=== PATIENT | female | born 1995 | race Two or more races ===

== ENCOUNTER 2024-12-08 09:47 | Emergency (ER) | payer MEDICAID, SELFPAY ==
[2024-12-08 10:07] VITALS: BP 112/66; PULSE 62; RESP 16; TEMP 37.1; O2SAT 99; BMI 22.3
--- NOTE | 2024-12-08 10:14 | XR_ITS ---
Examination: Complete OB ultrasound, less than 14 weeks, transabdominal Date and time of exam: December 08, 2024 1141 hours INDICATIONS: Vaginal bleeding and pelvic pain beginning one week ago Technique: Obstetrical ultrasound images less than 14 weeks performed via transabdominal imaging Findings: A normal shaped single intrauterine gestation is present in the uterus. pole 1.0 cm corresponds to 7 week 0 day gestational age Cardiac motion 126 BPM Adjacent subchorionic hemorrhage 17 x 8 x 14 mm Ultrasonographic survey of visible structures unremarkable. Amniotic fluid volume appears appropriate for this estimated gestational age. Right ovary 3.2 cm arterial flow 22 mm cyst Left ovary 2.9 cm arterial flow 13 mm cyst IMPRESSION: Viable intrauterine gestation 7 weeks 0 days Given the subchorionic hemorrhage, recommend short-term follow-up pelvic sonography.
--- NOTE | 2024-12-08 10:14 | EDNOTE_ITS ---
ED OB Contraction Preg RMI/HPI General Chief complaint: Vaginal Bleeding Stated complaint: I THINK IM HAVING A MISCARRIAGE . 8 WKS PREG Time Seen by Provider: 12/08/24 10:13 Arrival date/time: 12/08/24 09:47 29-year-old female approximately 8 weeks presents to the emergency department today complaints of vaginal bleeding patient is G3, patient reports being recently treated for UTI Limitations: no limitations Related Data Previous Rx's ?Medication ?Instructions ?Recorded amoxicillin 500 mg tablet 500 mg PO TID ##30 05/13/12 Allergies Allergy/AdvReac Type Severity Reaction Status Date / Time lactose Allergy Severe Diarrhea Verified 12/08/24 09:48 Review of Systems Review of Systems Systems Reviewed: All systems reviewed, normal except as documented Constitutional Constitutional: Reports system reviewed and no additional complaints, except as documented, Denies fever(s) and Denies headache(s) Eyes Eyes: Reports system reviewed and no additional complaints, except as documented and Denies blurry vision ENT Ears, Nose, Mouth, and Throat: Reports system reviewed and no additional complaints, except as documented, Denies headache(s), Denies nasal congestion and Denies nasal discharge Cardiovascular Cardiovascular: Reports system reviewed and no additional complaints, except as documented, Denies chest pain and Denies dyspnea Respiratory Respiratory: Reports system reviewed and no additional complaints, except as documented, Denies chest congestion, Denies cough and Denies dyspnea Gastrointestinal Gastrointestinal: Reports system reviewed and no additional complaints, except as documented and Denies abdominal pain Genitourinary Genitourinary: Reports system reviewed and no additional complaints, except as documented, Reports abnormal vaginal bleeding and Reports pelvic pain Integumentary/Breasts Skin/Breast: Reports system reviewed and no additional complaints, except as do cumented and Denies rash Neurologic Neurologic: Reports system reviewed and no additional complaints, except as documented, Reports as per HPI and Denies headache(s) Past Medical History Social History SMOKING STATUS: Never smoker ED Exam General Limitations: Present no limitations General appearance: Present alert and in no apparent distress Head Head exam: Present atraumatic, normocephalic and normal inspection Eye Eye exam: Present normal appearance, PERRL and EOMI; Absent conjunctival injection ENT ENT exam: Present normal exam, normal oropharynx and mucous membranes moist Neck Neck exam: Present normal inspection, full ROM and trachea midline Chest Chest inspection: Present normal inspection and symmetric chest wall rise Respiratory Respiratory exam: Present normal lung sounds bilaterally; Absent respiratory distress Cardiovascular Cardiovascular exam: Present regular rate, normal rhythm and normal heart sounds Abdominal Exam Abdominal exam: Present soft and normal bowel sounds; Absent distention, tenderness, guarding, rebound or rigidity Extremities Exam Extremities exam: Present normal inspection and full ROM Back Exam Back exam: Present normal inspection and full ROM Neurological Exam Neurological exam: Present alert, oriented X3 and CN II-XII intact Psychiatric Psychiatric exam: Present normal affect and normal mood Skin Skin exam: Present warm, dry, intact and normal color Course Quality Measures none Orders Category Date Time Status US OB <= 14 weeks fetus Stat Exams 12/08/24 10:14 Completed ABO/RH Type Stat Lab 12/08/24 11:21 Completed Beta HCG,Quantitative Stat Lab 12/08/24 11:21 Completed CBC Stat Lab 12/08/24 11:21 Completed Comprehensive Metabolic Panel Stat Lab 12/08/24 11:21 Completed UA, C/S IF [Urinalysis, C/S if Indicated] Stat Lab 12/08/24 13:35 Completed Vital Signs Vital signs: Vital Signs Temperature 98.7 F 12/08/24 10:07 Pulse Rate 62 12/08/24 10:07 Respiratory Rate 16 12/08/24 10:07 Blood Pressure 112/66 12/08/24 10:07 Pulse Oximetry (%) 99 12/08/24 10:07 Oxygen Delivery Method Room Air 12/08/24 10:07 O2 saturation 99% room air within normal limits Vaginal Bleeding MDM Narrative MDM Narrative: 29-year-old female approximately 8 weeks presents to the emergency department today complaints of vaginal bleeding patient is G3, patient reports being recently treated for UTI On exam patient well-appearing patient does not appear ill or toxic patient reports no active bleeding Lab work and ultrasound obtained Lab are consistent with viable Patient discharged home in no distress to follow-up with DRESSMAKER HELPER in the next 24 to 48 hours and for any worsening symptoms to return to the ER immediately Patient data External records reviewed:: [facility] previous records Clinical information provided by:: patient Social determinants that could affect healthcare access:: none Patient has the following chronic illnesses:: None How is presenting disease/condition affected by chronic disease/condition?: no chronic disease Evaluation data The following diagnostics were reviewed and interpreted by me:: lab results and radiology exam(s) Lab and/or radiology exams considered but not ordered:: Labs radiology obtain Interpretation Summary: Reviewed by me Medications / Prescriptions Medications or Prescriptions considered but not ordered:: Given Medication administrations:: Given Consultations Consultation(s) initiated? (list below): No Diagnosis Vaginal Bleeding Differential Diagnosis: missed and threatened Most likely diagnosis given after review of the tests above:: Threatened Admission Indicated Admission indicated?: not indicated Admission Request Was there a request for admission?: No Disposition Plan Disposition Plan: Discharge Discharge Attestation Discharge Attestation: The patient and all family members were given an opportunity to ask questions and understood the discharge instructions. Discharge instructions specifically effects, indications for sooner follow up or return to the emergency department, and the expected course of current diagnosis. Patient condition: Stable Discharge Plan Plan Patient Disposition: HOME (Self Care) Disposition Comment: Stable Prescriptions/Referrals Prescriptions/Med Rec: No Action amoxicillin 500 MG tablet 500 mg PO TID Qty: 30 0RF Referrals: Carter Leiva MD [Primary Care Provider] - 12/09/24 Problem List Clinical Impression: Subchorionic bleed Patient/Caregiver Discharge Instructions Education Materials: Bleeding During Early Additional Instructions: Please follow up with your DRESSMAKER HELPER in the next 24-48hrs for any worsening symptoms return here immediately Print Language: Portuguese Stand Alone Forms: Maite Award Info., Work/School Release, Patient Portal Info Letter ANDREW/DOROTHY Supervising Physician ANDREW/DOROTHY Supervising Physician: Dr benitez
[2024-12-08 11:38] LABS: Basophils % (Auto) 0 % (0-2.5); Eosinophils % (Auto) 0 % (0-10); Hematocrit 34.9 % (36.0-46.0); Hemoglobin 11.8 g/dL (12.0-16.0); Immature Granulocytes % (Auto) 0 % (0-0); Immature Granulocytes Auto 0.01 Thou/mm3 (0.00-0.00); Lymphocytes # (Auto) 1.3 Thou/mm3 (1.0-4.8); Lymphocytes % (Auto) 21 % (10-50); Mean Corpuscular HGB Conc 33.8 g/dl (31.0-37.0); Mean Corpuscular Hemoglobin 29.3 pg (25.0-35.0); Mean Corpuscular Volume 87 fL (80-100); Monocytes # (Auto) 0.5 Thou/mm3 (0.0-0.8); Monocytes % (Auto) 8 % (0-12); Neutrophils # (Auto) 4.5 Thou/mm3 (1.8-7.7); Neutrophils % (Auto) 71 % (37-80); Nucleated Red Blood Cell % 0 /100 WBC (0); Platelet Count 240 Thou/mm3 (140-440); RDW Standard Deviation 43.5 fL (36.4-46.3); Red Blood Count 4.03 Miln/mm3 (4.00-5.20); White Blood Count 6.3 Thou/mm3 (3.6-11.0)
[2024-12-08 12:18] LABS: Alanine Aminotransferase 10 U/L (10-49); Albumin, Serum 4.6 gm/dL (3.5-5.0); Albumin/Globulin Ratio 1.8 (1.2-2.2); Alkaline Phosphatase 46 U/L (46-116); Anion Gap 5 (7-16); Aspartate Amino Transferase 11 U/L (0-34); BUN/Creatinine Ratio 17 Ratio (12-20); Bilirubin,Total 0.4 mg/dL (0.3-1.2); Blood Urea Nitrogen 10 mg/dL (9-23); Calcium 9.3 mg/dL (8.3-10.6); Calcium (Corrected) 9.3 mg/dL (8.5-10.1); Carbon Dioxide 26.1 mMol/L (20.0-31.0); Chloride 104 mMol/L (98-107); Creatinine (Component) 0.6 mg/dL (0.6-1.3); Estimated Creatinine Clearance 120.5 mL/min (>60); Globulin 2.6 gm/dL (2.3-3.5); Glucose 87 mg/dL (74-106); Osmolality,Calculated 268 (275-295); Sodium 135 mMol/L (136-145); Total Protein 7.2 gm/dL (5.7-8.2); eGFR > 60 See Note
[2024-12-08 13:47] LABS: Beta HCG,Quantitative 215332 mIU/mL (<5.0)
[2024-12-08 13:56] LABS: Collection Type, Urine Clean Catch
[2024-12-08 14:32] LABS: Bacteria,Urine Rare; Bilirubin,Urine Negative (Negative); Blood,Urine 1+ (Negative); Clarity,Urine Turbid (Clear/Hazy); Color,Urine Lt-Yellow (Lt Yel-Yel); Culture Indicated,Urine Not Indicated; Glucose, Urine Negative (Negative); Ketones,Urine Negative (Negative); Leukocyte Esterase,Urine Negative (Negative); Nitrite,Urine Negative (Negative); PH,Urine 6.5 (5.0-7.0); Protein,Urine Negative (Neg - Trace); RBC,Urine 15 /hpf (0-3); Squamous Epithelial Cell,Urine 20 /hpf (0-5); Urobilinogen,Urine Negative mg/dL (0.0-1.0); WBC,Urine 1 /hpf (0-5)
== END 2024-12-08 14:45 | disposition home or self-care (01) ==
PROVIDERS: Nurse Practitioner Primary Care; Emergency Provider Emergency Medicine; PCP Family Medicine
DX: O20.8 Other hemorrhage in early pregnancy (principal); Z3A.08 8 weeks gestation of pregnancy
CPT/HCPCS: 36415; 76801; 80053; 81001; 84702; 85025; 86900; 86901; 99284

== ENCOUNTER 2024-12-14 10:41 | Outpatient (AMB) | payer MEDICAID, SELFPAY ==
[2024-12-14 10:54] VITALS: BP 111/68; PULSE 69; RESP 12; TEMP 36.5; O2SAT 98; BMI 22.4
--- NOTE | 2024-12-14 10:54 | AMB.OBINITIA ---
Vital Signs 12/14/24 10:54 Height 1.63 m Height Method Stated Weight 59.421 kg Weight Measurement Method Standing Scale BMI 22.4 BP 111/68 Blood Pressure Source Automatic Cuff Blood Pressure Location Left Upper Arm Position Sitting Respiration 12 Pulse 69 Pulse Source Monitor Temp 97.7 F Temp Source Oral Pulse Oximetry (%) 98 Oxygen Delivery Method Room Air Allergies/Home Meds Allergies & Medications Allergies lactose Allergy (Severe, Verified 12/14/24 10:55) Diarrhea Medication Reconciliation doxylamine 10 mg-pyridoxine (vit B6) 10 mg tablet,delayed release (Diclegis) 1 tab PO QDAY 30 days #30 tabs 12/14/24 [Rx] vitamin with calcium no.72-iron 27 mg-folic acid 1 mg tablet ( Vitamins Plus Low Iron) 1 tab PO QDAY 90 days #90 tabs 12/14/24 [Rx] Intake Visit Data Collection New Patient or Established: Established Patient (seen at [facility] within 3 years) Reason for Visit:: First visit for . Seen by Clinical Staff ONLY (RN/MA): No Shipping Support Clerk Required: No Do You Feel Safe at Home: Yes Authorities Contacted: N/A PCP or OBGYN visit in last 3 months: No Hx Now: Yes Are you currently on any form of Control: No Last menstrual period: 10/15/24 Pain Present Currently: No Pain Scale Used: Ochoa-Sosa/Numerical Pain scale:: 0 Smoking Status Smoking Status: Never smoker Questionnaires Covid-19 Vaccine Questionnaire Has patient been vacinated for Covid-19 Have you been vacinated for Covid-19: No PHQ-9 PHQ-2 Over the last 2 weeks, how often have you been bothered by any of the following problems? 1. Little interest or pleasure in doing things: not at all 2. Feeling down, depressed, or hopeless: not at all Total score: 0 PHQ-9 3. Trouble falling or staying asleep, or sleeping too much: Not at all 4. Feeling tired or having little energy: Not at all 5. Poor appetite or overeating: Not at all 6. Feeling bad about yourself - or that you are a failure or have let yourself or your family down: Not at all 7. Trouble concentrating on things, such as reading the newspaper or watching television: Not at all 8. Moving or speaking so slowly that other people could have noticed? - Or the opposite - being so fidgety or restless that you have been moving around a lot more than usual: not at all 9. Thoughts that you would be better off or of hurting yourself in some way: Not at all Total score: 0 Source: Developed by Drs. Butch Rico, Catie Acevedo, Giancarlo Farrar and colleagues, with an educational mishel from [employer]. Depression screen completed yes Social History Living Situation History Marital Status: Lives With: Family Housing: House Tobacco History Smoking Status: Never smoker Second Hand Smoke Exposure: No Alcohol History Alcohol Intake: Never Substance Use History Substance Use: NONE Domestic Abuse History Do You Feel Safe at Home: Yes Past Medical History Past Medical History Have you ever been diagnosed with any of the following: Neurological Problems Cerebrovascular Accident (CVA): No Transient Ischemic Attacks (TIA): No Dementia: No Alzheimer's Disease: No Seizures: No Epilepsy: No Guillain-[place] Syndrome: No Spinal Cord Injury: No Traumatic Brain Injury: No Cardiology Problems Myocardial Infarction: No Cardiac Arrhythmia: No Atrial Fibrillation: No Angina: No Hypertension: No Respiratory Problems Chronic Obstructive Pulmonary Disease (COPD): No Asthma: No Bronchitis: No Emphysema: No Hx Cough: No Cough: No Wheezing: No Chest Deformities: No Smoking: No Smoking Cessation Counseling: No Smoking Exposure: No Tobacco Use: No Stomache/Intestinal Problems Liver Cancer: No Hepatitis: No Cirrhosis: No Gall Bladder Disease: No Genital/Urinary Problems Chronic Kidney Disease: No Renal Disease: No Kidney Stones: No Reproductive Problems Breast Cancer: No Genital Herpes: No Gonorrhea: No Previous Pregnancies: Yes Syphilis: No Musculoskeletal Problems Muscular Dystrophy: No Myasthenia Gravis: No Marfan's Syndrome: No Bone Cancer: No Gout: No Head,Eye,Nose,Throat Problems Cataracts: No Glaucoma: No Blind: No Retinal Detachment: No Macular Degeneration: No Chronic Ear Infections: No Deafness: No Eye Prosthesis: No Endocrine Problems Diabetes Mellitus Type 1: No Diabetes Mellitus Type 2: No Hypoglycemia: No [place]'s Syndrome: No [place]'s Disease: No Hypothyroidism: No Thyroid Cancer: No Blood Problems Anemia: No Leukemia: No Hemophilia: No Thalassemia: No Sickle Cell Disease: No Clotting Problems: No Psychologic Problems Schizophrenia: No Recreational Drug Use: No Bipolar Disorder: No Depression: No Anxiety: No Behavior Problems: No Self-Mutilation: No Attention Deficit Disorder: No Attention Deficit Hyperactivity Disorder: No Depression: No Post Traumatic Stress Disorder: No Eating Disorder: No Other Problems Hospitalization: Yes Autoimmune Disease: No Down Syndrome: No Autism: No Developmental Delay: No Cosmetic Surgery: No Shingles: No Falls: No Surgical History Angioplasty: No Appendectomy: No Bariatric Surgery: No Breast Surgery: No History of Present Illness HPI Narrative History of Present Illness at 8 weeks 1 day gestation presenting for initial visit. Patient reports nausea during this , with one episode of emesis. She recently visited the ER where an ultrasound revealed a small area of hemorrhage, but otherwise normal findings with a viable fetus measuring 7 weeks at that time. The patient was also diagnosed with a UTI during the ER visit and completed a course of Keflex. She denies any current cramping, spotting, or abdominal pain. Patient's obstetrical history is significant for a full-term vaginal delivery 7 years ago, complicated by hemorrhage. She also reports a miscarriage in March of the previous year. No history of gestational diabetes in prior pregnancies. Medical History - (current is 3rd gestation, 1 living child, 0 births, 1 miscarriage, 1 term ) - Miscarriage (March of previous year) - hemorrhage (with first ) - Recent UTI (treated with Keflex) Surgical History - Normal vaginal delivery (7 years ago) Medications and Supplements - vitamins - Keflex (for UTI treatment, completed course) Social History - Family structure: Patient has one 7-year-old child Review of Systems - Gastrointestinal: Nausea, vomited once - Genitourinary: Had a UTI (urinary tract infection) OB Initial Visit Menstrual History Menstrual reliability: definite Flow: normal Menstrual regularity: regular Monthly: Yes Age at menarche: 17 On control pills at conception: No Date of positive home test: 11/29/24 Associated symptoms (LMP): Denies amenorrhea, nausea, vomiting, fatigue, breast tenderness, urinary frequency, irritability, bloating or other OB History : 3 Para: 1 Hx # Pregnancies: 0 Hx Total # of Abortions (Spontaneous & Elective): 1 # of Living Children: 1 Delivery History 1st : Child's name: JHONNY date: 03/22/17 sex: male Gestational age at delivery (weeks): 40 Delivery type: vaginal Delivery complications: NONE History of depression before or after : No Infection History & Risk Evaluation History of STDs: none Varicella/chicken pox status: immunized Genetic Screening & History Genetic Screening/Teratology Counseling - Includes patient, baby's father, or anyone in either family with: 1. Patient's age 35 years or older as of estimated date of delivery: No 2. Thalassemia (Martiniquais, Chinese, Mediterranean, or Background); MCV less than 80: No 3. Neural Tube Defect (Meningomyelocele, Spina Bifida, or Anencephaly): No 4. Congenital Heart Defect: No 5. Down Syndrome: No 6. Robin-Sachs (Ashkenazi Caodaism, Cajun, Cameroonian Serbian): No 7. Fabiola Disease (Ashkenazi Caodaism): No 8. Familial Dysautonomia (Ashkenazi Caodaism): No 9. Sickle Cell Disease or Trait (): No 10. Hemophilia or other blood disorders: No 11. Muscular Dystrophy: No 12. Cystic Fibrosis: No 13. [place]'s Chorea: No 14. Mental Retardation/Autism: No 15. Other inherited genetic or chromosomal disorder: No 16. Maternal Metabolic Disorder (EG,TYPE 1 Diabetes, PKU): No 17. Patient or baby's father had a child with defects not listed above: No 18. Recurrent loss or a stillbirth: No 19. Medications (including supplements, vitamins, herbs or otc drugs)/illicit/recreational drugs/alcohol since last menstrual period: No 20. Any other: No Infection History 1. Live with someone with TB or exposed to TB: No 2. Rash or viral illness since last menstrual period: No 3. Hepatitis B,C: No Other (see comments) Source: [employer] OB Flowsheet OB Flowsheet Initial Weight: Not Recorded Date <del>?</del> EGA Weight Edema CTX Effacement BP Fundal ht Pres Dilation Effacement Station Visit Note Alb Glu FHR Mov 12/14/24 <del>?</del> 7w 6d 59.421 kg 111/68 Review of Systems Review of Systems Systems Reviewed: All systems reviewed, normal except as documented Constitutional Constitutional: Denies fatigue Gastrointestinal Gastrointestinal: Denies bloating, Denies nausea and Denies vomiting Genitourinary Genitourinary: Denies amenorrhea and Denies urinary frequency Psychiatric Psychiatric: Denies irritability Endocrine Endocrine: Denies fatigue Exam General Limitations: no limitations General Appearance: alert, in no apparent distress, comfortable, cooperative, healthy appearing, well developed and well groomed Head Head exam: atraumatic, normocephalic and normal inspection Neck Neck exam: Present normal inspection, full ROM and trachea midline Card Cardiovascular exam: Present regular rate, normal rhythm and normal heart sounds Abdominal Abdominal exam: Present soft and normal bowel sounds Extremities Extremities exam: Present normal inspection and full ROM Back Back exam: Present normal inspection and full ROM Psych Psychiatric exam: Present normal affect and normal mood Skin Skin exam: Present warm, dry, intact and normal color Assessment & Plan Diagnosis / Problem List (1) Supervision of high risk , unspecified, first trimester: Status: Acute Plan: Intrauterine at 8 weeks 1 day gestation Patient is a at 8 weeks 1 day gestation based on ultrasound findings. LIS is July 27, 2025. Recent ER visit showed a small area of hemorrhage, but heartbeat was present. Current ultrasound demonstrates normal heart rate of 160 bpm. Patient reports nausea with one episode of emesis. No current cramping, spotting, or abdominal pain. History of hemorrhage with previous delivery. - Continue vitamins - Complete initial labs and genetic screening after 9 weeks gestation at [facility] - Detailed ultrasound scheduled for 12 weeks gestation - Monitor for worsening nausea and vomiting - Follow up as scheduled (2) Subchorionic bleed: Status: Inactive (3) UTI in , antepartum: Status: Acute Plan: Patient reports recent UTI diagnosed during ER visit. Treated with Keflex (cephalexin), which is considered safe in . Patient states she completed the prescribed course. - Monitor for recurrence of UTI symptoms - No further intervention required at this time (4) Ovarian cyst affecting in first trimester, antepartum: Status: Acute Plan: Ovarian cyst Patient reports history of ovarian cyst discovered during recent ER visit. Exact size unknown but was not of immediate concern. Cysts typically remain stable during . - Monitor cyst during 12-week detailed ultrasound - Assess for any pressure on fetus or uterine distortion Office Procedures OB Clinic LOC & Office Proc's Nursing/Assessment Patient Status: Established Patient OB Clinic Nursing Assessment: Medication Reconciliation, Update PMH in EMR and Vital Signs OB Clinic Coordination of Care: Complex Care and Chronic Disease 1-5, Consent,records obtained, informed consent, Education Simp Pt/Fam, Lab and Imaging orders and Staff clarify orders Special Needs: Heart tones Established Patient Charge Established Patient Point Assignment: 130 Established Patient Point Charge: EP Level 4 (120-155) Bedside Ultrasounds US Transabdominal >14 weeks at bedside: Yes
== END 2024-12-14 11:11 | disposition home or self-care (01) ==
LOC: HODSOBC 10:41
PROVIDERS: Supervising Provider Obstetrics & Gynecology; Visit Provider Obstetrics & Gynecology
DX: O09.891 Supervision of other high risk pregnancies, first trimester (principal); O20.8 Other hemorrhage in early pregnancy; O23.41 Unspecified infection of urinary tract in pregnancy, first trimester; O34.81 Maternal care for other abnormalities of pelvic organs, first trimester; N83.209 Unspecified ovarian cyst, unspecified side; Z3A.01 Less than 8 weeks gestation of pregnancy; Z87.59 Personal history of other complications of pregnancy, childbirth and the puerperium
CPT/HCPCS: 76805; 99214; G0463

== ENCOUNTER 2025-01-16 09:48 | Outpatient (AMB) | payer MEDICAID, SELFPAY ==
[2025-01-16 10:15] VITALS: BP 108/72; PULSE 90; RESP 18; TEMP 36.4; O2SAT 95; BMI 22.0
--- NOTE | 2025-01-16 10:15 | AMB.OBINITIA ---
Vital Signs 01/16/25 10:15 Height 1.63 m Height Method Stated Weight 58.173 kg Weight Measurement Method Standing Scale BMI 22.0 BP 108/72 Blood Pressure Source Automatic Cuff Blood Pressure Location Left Upper Arm Position Sitting Respiration 18 Pulse 90 Pulse Source Monitor Temp 97.5 F Temp Source Oral Pulse Oximetry (%) 95 Oxygen Delivery Method Room Air Allergies/Home Meds Allergies & Medications Allergies lactose Allergy (Severe, Verified 01/16/25 10:16) Diarrhea Medication Reconciliation doxylamine 10 mg-pyridoxine (vit B6) 10 mg tablet,delayed release (Diclegis) 1 tab PO QDAY 30 days #30 tabs 12/14/24 [Rx Confirmed 01/16/25] vitamin with calcium no.72-iron 27 mg-folic acid 1 mg tablet ( Vitamins Plus Low Iron) 1 tab PO QDAY 90 days #90 tabs 12/14/24 [Rx] amoxicillin 500 mg capsule 500 mg PO TID 5 days #15 caps 01/16/25 [Rx] Intake Visit Data Collection New Patient or Established: Established Patient (seen at [facility] within 3 years) Reason for Visit:: CARE/ LAB RESULTS 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 1. Little interest or pleasure in doing things: not at all 2. Feeling down, depressed, or hopeless: not at all Total score: 0 PHQ-9 3. Trouble falling or staying asleep, or sleeping too much: Not at all 4. Feeling tired or having little energy: Not at all 5. Poor appetite or overeating: Not at all 6. Feeling bad about yourself - or that you are a failure or have let yourself or your family down: Not at all 7. Trouble concentrating on things, such as reading the newspaper or watching television: Not at all 8. Moving or speaking so slowly that other people could have noticed? - Or the opposite - being so fidgety or restless that you have been moving around a lot more than usual: not at all 9. Thoughts that you would be better off or of hurting yourself in some way: Not at all Total score: 0 Source: Developed by Drs. Butch Rico, Catie Acevedo, Giancarlo Farrar and colleagues, with an educational mishel from [employer]. Depression screen completed yes Social History Living Situation History Lives With: Family Housing: House Tobacco History Smoking Status: Never smoker Second Hand Smoke Exposure: No Alcohol History Alcohol Intake: Never Substance Use History Substance Use: NONE Domestic Abuse History Do You Feel Safe at Home: Yes Past Medical History Past Medical History Have you ever been diagnosed with any of the following: Neurological Problems Cerebrovascular Accident (CVA): No Transient Ischemic Attacks (TIA): No Dementia: No Alzheimer's Disease: No Seizures: No Epilepsy: No Guillain-[place] Syndrome: No Spinal Cord Injury: No Traumatic Brain Injury: No Cardiology Problems Myocardial Infarction: No Cardiac Arrhythmia: No Atrial Fibrillation: No Angina: No Hypertension: No Respiratory Problems Chronic Obstructive Pulmonary Disease (COPD): No Asthma: No Bronchitis: No Emphysema: No Hx Cough: No Cough: No Wheezing: No Chest Deformities: No Smoking: No Smoking Cessation Counseling: No Smoking Exposure: No Tobacco Use: No Stomache/Intestinal Problems Liver Cancer: No Hepatitis: No Cirrhosis: No Gall Bladder Disease: No Genital/Urinary Problems Renal Disease: No Kidney Stones: No Reproductive Problems Breast Cancer: No Genital Herpes: No Gonorrhea: No Previous Pregnancies: Yes Syphilis: No Musculoskeletal Problems Muscular Dystrophy: No Myasthenia Gravis: No Marfan's Syndrome: No Bone Cancer: No Gout: No Head,Eye,Nose,Throat Problems Cataracts: No Glaucoma: No Blind: No Retinal Detachment: No Macular Degeneration: No Chronic Ear Infections: No Deafness: No Eye Prosthesis: No Endocrine Problems Diabetes Mellitus Type 1: No Diabetes Mellitus Type 2: No Hypoglycemia: No [place]'s Syndrome: No Cowden's Disease: No Hypothyroidism: No Thyroid Cancer: No Blood Problems Anemia: No Leukemia: No Hemophilia: No Thalassemia: No Sickle Cell Disease: No Clotting Problems: No Psychologic Problems Schizophrenia: No Recreational Drug Use: No Bipolar Disorder: No Depression: No Anxiety: No Behavior Problems: No Self-Mutilation: No Attention Deficit Disorder: No Attention Deficit Hyperactivity Disorder: No Depression: No Post Traumatic Stress Disorder: No Eating Disorder: No Other Problems Hospitalization: Yes Down Syndrome: No Autism: No Developmental Delay: No Cosmetic Surgery: No Shingles: No Falls: No Surgical History Angioplasty: No Appendectomy: No Bariatric Surgery: No Breast Surgery: No History of Present Illness HPI Narrative Patient reports feeling generally good with occasional nausea and vomiting. She denies experiencing cramping or spotting. Nga mentions frequent urination, stating, every time I, like, even if I drink a little bit of water, I pee, like, right away. This symptom suggests bladder irritation. She was previously prescribed cephalexin 500 mg twice daily for a week to treat a urinary tract infection, but lab results indicate the infection persists. The patient reports no other significant symptoms or concerns. She is currently taking vitamins as prescribed. She is a 3 para 1011 at 12 weeks and 4 days gestation with an estimated delivery date of 07-27-2025. The gender is male. She has a history of recurrent urinary tract infections. The patient is immune to rubella. Patient mentions going to the gym and running as potential activities. Reports occasional nausea and vomiting, and frequent urination. Denies fever, chills, fatigue, and cramping. heart rate 151 bpm, noted as normal. Diagnostic Test Results and Labs: - Panel (01/02/2025): Blood group A-positive, antibody screen negative, rubella immune, RPR non-reactive, hepatitis B and C negative, HIV negative - Gonorrhea and Chlamydia (01/02/2025): Negative - Urine culture (01/02/2025): Positive for Coagulase-negative staphylococcus >100,000 CFUs, susceptible to all antibiotics tested - NIPT (01/02/2025): Negative for all trisomies, consistent with male gender - heart rate (01/16/2025): 151 bpm OB Initial Visit OB Flowsheet OB Flowsheet Initial Weight: Not Recorded Date <del>?</del> EGA Weight Edema CTX Effacement BP Fundal ht Pres Dilation Effacement Station Visit Note Alb Glu FHR Mov 12/14/24 <del>?</del> 7w 6d 59.421 kg 111/68 01/16/25 <del>?</del> 12w 4d 58.173 kg 108/72 RX for UTI. Bedside ok. Labs reviewed. [facility] this Thursday for NT. 4w. 151 Assessment & Plan Diagnosis / Problem List (1) UTI in , antepartum: Status: Acute Plan Urinary Tract Infection (UTI) Plan: - Prescribe new antibiotic based on sensitivity report. - Educate patient on increased risks associated with UTIs in . - Follow up on symptoms at next visit. Routine Care Plan: - Continue vitamins. - Attend scheduled Level 2 ultrasound with [facility] specialist on Thursday. - No activity restrictions; advise to stop activity and rest if cramping or bleeding occurs. - Follow up in 1 month for next visit. - Educate on decreased miscarriage risk after 15 weeks gestation. Office Procedures OB Clinic LOC & Office Proc's Nursing/Assessment Patient Status: Established Patient OB Clinic Nursing Assessment: Medication Reconciliation, Update PMH in EMR and Vital Signs OB Clinic Coordination of Care: Complex Care and Chronic Disease 1-5, Consent,records obtained, informed consent, Education Simp Pt/Fam, Lab and Imaging orders, Results/Orders obtained and Staff clarify orders Special Needs: Heart tones Established Patient Charge Established Patient Point Assignment: 135 Established Patient Point Charge: EP Level 4 (120-155)
== END 2025-01-16 10:32 | disposition home or self-care (01) ==
LOC: HODSOBC 09:48
PROVIDERS: PCP Obstetrics & Gynecology; Referring Provider Obstetrics & Gynecology; Supervising Provider Obstetrics & Gynecology; Visit Provider Obstetrics & Gynecology
DX: O23.41 Unspecified infection of urinary tract in pregnancy, first trimester (principal); Z3A.12 12 weeks gestation of pregnancy; Z87.440 Personal history of urinary (tract) infections
CPT/HCPCS: 99214; G0463

== ENCOUNTER 2025-02-15 08:41 | Outpatient (AMB) | payer MEDICAID, SELFPAY ==
[2025-02-15 09:20] VITALS: BP 119/73; PULSE 78; RESP 18; TEMP 36.2; O2SAT 97; BMI 22.6
--- NOTE | 2025-02-15 09:20 | AMB.OBVISIT ---
Vital Signs 02/15/25 09:20 Height 1.63 m Height Method Stated Weight 60.044 kg Weight Measurement Method Standing Scale BMI 22.6 BP 119/73 Blood Pressure Source Automatic Cuff Blood Pressure Location Left Upper Arm Position Sitting Respiration 18 Pulse 78 Pulse Source Monitor Temp 97.2 F Temp Source Oral Pulse Oximetry (%) 97 Oxygen Delivery Method Room Air Allergies/Home Meds Allergies & Medications Allergies lactose Allergy (Severe, Verified 02/15/25 09:21) Diarrhea Medication Reconciliation doxylamine 10 mg-pyridoxine (vit B6) 10 mg tablet,delayed release (Diclegis) 1 tab PO QDAY 30 days #30 tabs 12/14/24 [Rx Confirmed 02/15/25] vitamin with calcium no.72-iron 27 mg-folic acid 1 mg tablet ( Vitamins Plus Low Iron) 1 tab PO QDAY 90 days #90 tabs 12/14/24 [Rx Confirmed 02/15/25] nitrofurantoin macrocrystal 100 mg capsule 100 mg PO QHS 30 days #30 caps 02/15/25 [Rx] Intake Visit Data Collection New Patient or Established: Established Patient (seen at [facility] within 3 years) Reason for Visit:: Routine care visit at 16 weeks and 6 days gestation, review of UTI treatment from previous visit Seen by Clinical Staff ONLY (RN/MA): No Ventilated Rib Fitter Required: No Do You Feel Safe at Home: Yes Authorities Contacted: N/A PCP or OBGYN visit in last 3 months: Yes Date of Last PCP or OBGYN visit: 01/16/25 Hx Now: Yes Are you currently on any form of Control: No Pain Present Currently: No Pain Scale Used: Ochoa-Sosa/Numerical Pain scale:: 0 Smoking Status Smoking Status: Never smoker Questionnaires Covid-19 Vaccine Questionnaire Has patient been vacinated for Covid-19 Have you been vacinated for Covid-19: Yes PHQ-9 PHQ-2 Over the last 2 weeks, how often have you been bothered by any of the following problems? 1. Little interest or pleasure in doing things: not at all 2. Feeling down, depressed, or hopeless: not at all Total score: 0 PHQ-9 3. Trouble falling or staying asleep, or sleeping too much: Not at all 4. Feeling tired or having little energy: Not at all 5. Poor appetite or overeating: Not at all 6. Feeling bad about yourself - or that you are a failure or have let yourself or your family down: Not at all 7. Trouble concentrating on things, such as reading the newspaper or watching television: Not at all 8. Moving or speaking so slowly that other people could have noticed? - Or the opposite - being so fidgety or restless that you have been moving around a lot more than usual: not at all 9. Thoughts that you would be better off or of hurting yourself in some way: Not at all Total score: 0 If you checked off any problems, how difficult have these problems made it for you to do your work, take care of things at home, or get along with other people?: not difficult at all Source: Developed by Drs. Butch Rico, Catie Acevedo, Giancarlo Farrar and colleagues, with an educational mishel from [employer]. 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 - Patient was previously treated for UTI symptoms with antibiotics at her last appointment. - Currently asymptomatic for UTI: - Denies frequency or urgency - Positive urine dipstick for nitrates noted - Reports nausea is way better - Denies cramping or spotting - No other -related problems reported No contractions/ LOF/VB, reports good FM No CAMPBELL/VC/RUQ/Epig pain Care OB Visit Log OB Flowsheet Initial Weight: Not Recorded Date <del>?</del> EGA Weight BP Alb Glu CTX Pres Fundal ht FHR Mov Dilation Station Effacement Hx Notes Visit Note 12/14/24 <del>?</del> 7w 6d 59.421 kg 111/68 01/16/25 <del>?</del> 12w 4d 58.173 kg 108/72 151 RX for UTI. Bedside ok. Labs reviewed. [facility] this Thursday for NT. 4w. 02/15/25 <del>?</del> 16w 6d 60.044 kg 119/73 Nga Leiva, at 16 weeks and 6 days gestation, presents for routine care and review of results. She was previously treated for UTI symptoms and currently denies urinary frequency, urgency, cramping, or spotting. Nausea has significantly improved. heart rate is 145 bpm, and she reports no concerns at today?s visit. Urine dipstick remains positive for nitrates. Plan: Prescribe antibiotic for current UTI Initiate nightly antibiotic suppression therapy for 30 days Repeat urine culture after suppression period Continue OTC vitamins Attend scheduled 20-week anatomy scan at [facility] up in 4 weeks for routine care LIS Calculator Estimated Delivery Date Method Current WG Current Estimate 07/27/25 Ultrasound #1 18w 4d Office Procedures OB Clinic LOC & Office Proc's Nursing/Assessment Patient Status: Established Patient OB Clinic Nursing Assessment: Medication Reconciliation, Update PMH in EMR and Vital Signs OB Clinic Coordination of Care: Consent,records obtained, informed consent, Education Simp Pt/Fam and Staff clarify orders Special Needs: Heart tones Established Patient Charge Established Patient Point Assignment: 90 Established Patient Point Charge: EP Level 3 (80-115) Assessment & Plan Diagnosis / Problem List (1) UTI in , antepartum: Status: Acute (2) : Status: Acute (3) Ovarian cyst affecting in first trimester, antepartum: Status: Acute (4) Supervision of high risk , unspecified, first trimester: Status: Acute Plan Problem List - Urinary tract infection in - , 16 weeks and 6 days Assessment - Urinary tract infection (UTI) confirmed by positive nitrates on urine dipstick - 3, para 1 at 16 weeks and 6 days gestation - heart rate 145 bpm - Nausea improved - No cramping or spotting reported Plan - Prescribe antibiotics for UTI treatment - Initiate suppression therapy with nightly antibiotic for 30 days - Repeat urine culture after 30 days of suppression therapy - Continue vitamins (patient using [id number]) - Attend scheduled 20-week ultrasound at [facility] - Follow up in 4 weeks for care Educated the patient on labor signs, including regular contractions, lower back pain, and changes in vaginal discharge. Advised avoiding heavy lifting and getting adequate rest. Instructed to contact the office immediately if any signs occur. Discussed the importance of a balanced diet rich in folic acid, iron, and calcium, and provided a list of recommended and to-avoid foods. Emphasized avoiding high-sugar foods to reduce gestational diabetes risk. Encouraged hydration and frequent, small meals for energy..
== END 2025-02-15 09:27 | disposition home or self-care (01) ==
LOC: HODSOBC 08:41
PROVIDERS: PCP Obstetrics & Gynecology; Referring Provider Obstetrics & Gynecology; Supervising Provider Obstetrics & Gynecology; Visit Provider Obstetrics & Gynecology
DX: O09.892 Supervision of other high risk pregnancies, second trimester (principal); Z3A.16 16 weeks gestation of pregnancy; O23.42 Unspecified infection of urinary tract in pregnancy, second trimester; N39.0 Urinary tract infection, site not specified; O34.82 Maternal care for other abnormalities of pelvic organs, second trimester; N83.209 Unspecified ovarian cyst, unspecified side
CPT/HCPCS: 99213; G0463

== ENCOUNTER 2025-03-17 09:25 | Outpatient (AMB) | payer MEDICAID, SELFPAY ==
[2025-03-17 10:01] VITALS: BP 106/64; PULSE 65; RESP 17; TEMP 36.4; O2SAT 98; BMI 23.3
--- NOTE | 2025-03-17 10:01 | OBCLNT_ITS ---
Vital Signs 03/17/25 10:01 Height 1.63 m Height Method Stated Weight 61.859 kg Weight Measurement Method Standing Scale BMI 23.3 BP 106/64 Blood Pressure Source Automatic Cuff Blood Pressure Location Right Upper Arm Position Sitting Respiration 17 Pulse 65 Pulse Source Monitor Temp 97.6 F Temp Source Temporal Artery Scan Pulse Oximetry (%) 98 Oxygen Delivery Method Room Air Allergies/Home Meds Allergies & Medications Allergies lactose Allergy (Severe, Verified 03/17/25 10:03) Diarrhea Medication Reconciliation doxylamine 10 mg-pyridoxine (vit B6) 10 mg tablet,delayed release (Diclegis) 1 tab PO QDAY 30 days #30 tabs 12/14/24 [Rx Confirmed 03/17/25] vitamin with calcium no.72-iron 27 mg-folic acid 1 mg tablet ( Vitamins Plus Low Iron) 1 tab PO QDAY 90 days #90 tabs 12/14/24 [Rx Confirmed 03/17/25] nitrofurantoin macrocrystal 100 mg capsule 100 mg PO QHS 30 days #30 caps 02/15/25 [Rx Confirmed 03/17/25] Intake Visit Data Collection New Patient or Established: Established Patient (seen at [facility] within 3 years) Reason for Visit:: OBC Seen by Clinical Staff ONLY (RN/MA): No High Voltage Electrician Required: No Do You Feel Safe at Home: Yes Authorities Contacted: N/A PCP or OBGYN visit in last 3 months: Yes Date of Last PCP or OBGYN visit: 02/15/25 Hx Now: Yes Are you currently on any form of Control: No Pain Present Currently: No Pain Scale Used: Ochoa-Sosa/Numerical Pain scale:: 0 Smoking Status Smoking Status: Never smoker Questionnaires Covid-19 Vaccine Questionnaire Has patient been vacinated for Covid-19 Have you been vacinated for Covid-19: No PHQ-9 PHQ-2 Over the last 2 weeks, how often have you been bothered by any of the following problems? 1. Little interest or pleasure in doing things: not at all 2. Feeling down, depressed, or hopeless: not at all Total score: 0 PHQ-9 3. Trouble falling or staying asleep, or sleeping too much: Not at all 4. Feeling tired or having little energy: Not at all 5. Poor appetite or overeating: Not at all 6. Feeling bad about yourself - or that you are a failure or have let yourself or your family down: Not at all 7. Trouble concentrating on things, such as reading the newspaper or watching television: Not at all 8. Moving or speaking so slowly that other people could have noticed? - Or the opposite - being so fidgety or restless that you have been moving around a lot more than usual: not at all 9. Thoughts that you would be better off or of hurting yourself in some way: Not at all Total score: 0 If you checked off any problems, how difficult have these problems made it for you to do your work, take care of things at home, or get along with other people?: not difficult at all Source: Developed by Drs. Butch Rico, Catie Acevedo, Giancarlo Farrar and colleagues, with an educational mishel from [employer]. 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 No contractions, LOF, VB and reports good FM. Denies CAMPBELL, VC, and epigastric pain. - Nga Leiva is a 30-year-old at 21 weeks and 1 day gestation presenting for a routine visit. - Previous visit was one month ago at 16 weeks gestation. - Prescribed antibiotics for a UTI at that time. - Hyperemesis has resolved since last visit. - Referred to [facility]'s Ultrasound for MFM evaluation. - Ultrasound revealed: - Ventricular septal defect (VSD), expected to close by . - Straight umbilical cord, potentially leading to intrauterine growth restriction (IUGR). - Patient reports a small, itchy, flaking growth that started in October. - Likely benign and related to hormones. Care OB Visit Log OB Flowsheet Initial Weight: Not Recorded Date -?-?-?-?-?-?-?-?-?-?-?-?- EGA Weight BP Alb Glu CTX Pres Fundal ht FHR Mov Dilation Station Effacement Hx Notes Visit Note 12/14/24 -?-?-?-?-?-?-?-?-?-?-?-?- 7w 6d 59.421 kg 111/68 01/16/25 -?-?-?-?-?-?-?-?-?-?-?-?- 12w 4d 58.173 kg 108/72 151 RX for UTI. Bedside ok. Labs reviewed. [facility] this Thursday for NT. 4w. 02/15/25 -?-?-?-?-?-?-?-?-?-?-?-?- 16w 6d 60.044 kg 119/73 Nga Leiva, at 16 weeks and 6 days gestation, presents for routine care and review of results. She was previously treated for UTI symptoms and currently denies urinary frequency, urgency, cramping, or spotting. Nausea has significantly improved. heart rate is 145 bpm, and she reports no concerns at today?s visit. Urine dipstick remains positive for nitrates. Plan: Prescribe antibiotic for current UTI Initiate nightly antibiotic suppression therapy for 30 days Repeat urine culture after suppression p eriod Continue OTC vitamins Attend scheduled 20-week anatomy scan at [facility] up in 4 weeks for routine care LIS Calculator Estimated Delivery Date Method Current WG Current Estimate 07/27/25 Ultrasound #1 21w 6d Exam General General Appearance: alert, in no apparent distress and healthy appearing Head Head exam: atraumatic Neck Neck exam: Present normal inspection and trachea midline Chest Chest inspection: Present normal inspection and symmetric chest wall rise External exam: Present normal external exam; Absent tenderness Neuro Neurological exam: Present oriented X3 Psych Psychiatric exam: Present normal affect and normal mood Office Procedures OB Clinic LOC & Office Proc's Nursing/Assessment Patient Status: Established Patient OB Clinic Nursing Assessment: Medication Reconciliation, Update PMH in EMR and Vital Signs OB Clinic Coordination of Care: Complex Care and Chronic Disease 1-5, Consent,records obtained, informed consent, Education Simp Pt/Fam and Staff clarify orders Special Needs: Heart tones Established Patient Charge Established Patient Point Assignment: 115 Established Patient Point Charge: EP Level 3 (80-115) Assessment & Plan Diagnosis / Problem List (1) Ovarian cyst affecting in first trimester, antepartum: Status: Acute (2) Supervision of high risk , unspecified, first trimester: Status: Acute Plan Problem List - , 21 weeks and 1 day - Ventricular septal defect in fetus - Straight umbilical cord - Urinary tract infection - Skin lesion Assessment 30-year-old at 21 weeks 1 day gestation presenting for routine visit. Recent ultrasound revealed ventricular septal defect (VSD) expected to close by , and straight umbilical cord with potential risk for intrauterine growth restriction (IUGR). History of hyperemesis, now resolved. Previously diagnosed UTI treated with antibiotics, pending confirmation of clearance. Patient reports small, itchy, flaking growth since October, likely benign and -related. Fetus named Yovani. Plan - Review MFM results from [facility] Ultrasound - Monitor growth via ultrasounds due to straight umbilical cord and potential IUGR - Perform glucose test for diabetes screening at next visit - Send urine sample today to check UTI clearance - Apply hydrocortisone for itchy skin growth if needed - Consider shave biopsy of skin growth post-delivery if it persists - Follow up in 4 weeks - Dr. Kohler to call Dr. Grissom's office for report and scan into patient's chart 1. Progress Reviewed gestational age, growth, and heart rate. Planned frequent visits (every 2 weeks until 36 weeks, then weekly). 2. Instructed patient to monitor movements and report decreases immediately. 3. Testing Counseled on routine third-trimester labs per guidelines. Discussed potential need for ultrasound or monitoring based on risk factors. 4. Preeclampsia Precaution Educated on preeclampsia signs: severe headache, vision changes, right upper quadrant pain, sudden swelling. Advised urgent reporting of symptoms and discussed blood pressure monitoring if high risk. 5. Labor Precautions Reviewed labor signs: regular contractions, pelvic pressure, back pain, bleeding, or fluid leakage. Instructed to seek immediate care for these symptoms. 6. Lifestyle and Delivery Preparation Reinforced vitamins, nutrition, and safe activity. Discussed plan, pain management, and . Advised on labor preparation (e.g., hospital bag) and expectations. 7. Psychosocial Support Assessed emotional well-being and offered resources for mental health or parenting support.
== END 2025-03-17 10:13 | disposition home or self-care (01) ==
LOC: HODSOBC 09:25
PROVIDERS: Supervising Provider Obstetrics & Gynecology; Visit Provider Obstetrics & Gynecology
DX: O09.892 Supervision of other high risk pregnancies, second trimester (principal); O34.82 Maternal care for other abnormalities of pelvic organs, second trimester; N83.209 Unspecified ovarian cyst, unspecified side; O23.42 Unspecified infection of urinary tract in pregnancy, second trimester; O35.BXX0 Maternal care for other (suspected) fetal abnormality and damage, fetal cardiac anomalies, not applicable or unspecified; O99.712 Diseases of the skin and subcutaneous tissue complicating pregnancy, second trimester; L98.9 Disorder of the skin and subcutaneous tissue, unspecified; Z3A.21 21 weeks gestation of pregnancy
CPT/HCPCS: 99213; G0463

== ENCOUNTER 2025-04-19 09:45 | Outpatient (AMB) | payer MEDICAID, SELFPAY ==
[2025-04-19 10:00] VITALS: BP 106/68; PULSE 95; RESP 18; TEMP 36.6; O2SAT 98; BMI 23.9
--- NOTE | 2025-04-19 10:00 | AMB.OBVISIT ---
Vital Signs 04/19/25 10:00 Height 1.63 m Height Method Stated Weight 63.673 kg Weight Measurement Method Standing Scale BMI 23.9 BP 106/68 Blood Pressure Source Automatic Cuff Blood Pressure Location Left Upper Arm Position Sitting Respiration 18 Pulse 95 Pulse Source Monitor Temp 97.9 F Temp Source Oral Pulse Oximetry (%) 98 Oxygen Delivery Method Room Air Allergies/Home Meds Allergies & Medications Allergies lactose Allergy (Severe, Verified 04/19/25 10:01) Diarrhea Medication Reconciliation doxylamine 10 mg-pyridoxine (vit B6) 10 mg tablet,delayed release (Diclegis) 1 tab PO QDAY 30 days #30 tabs 12/14/24 [Rx Confirmed 04/19/25] vitamin with calcium no.72-iron 27 mg-folic acid 1 mg tablet ( Vitamins Plus Low Iron) 1 tab PO QDAY 90 days #90 tabs 12/14/24 [Rx Confirmed 04/19/25] nitrofurantoin macrocrystal 100 mg capsule 100 mg PO QHS 30 days #30 caps 02/15/25 [Rx Confirmed 04/19/25] Intake Visit Data Collection New Patient or Established: Established Patient (seen at [facility] within 3 years) Reason for Visit:: CARE Seen by Clinical Staff ONLY (RN/MA): No 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 1. Little interest or pleasure in doing things: not at all 2. Feeling down, depressed, or hopeless: not at all Total score: 0 PHQ-9 3. Trouble falling or staying asleep, or sleeping too much: Not at all 4. Feeling tired or having little energy: Not at all 5. Poor appetite or overeating: Not at all 6. Feeling bad about yourself - or that you are a failure or have let yourself or your family down: Not at all 7. Trouble concentrating on things, such as reading the newspaper or watching television: Not at all 8. Moving or speaking so slowly that other people could have noticed? - Or the opposite - being so fidgety or restless that you have been moving around a lot more than usual: not at all 9. Thoughts that you would be better off or of hurting yourself in some way: Not at all Total score: 0 Source: Developed by Drs. Butch Rico, Catie Acevedo, Giancarlo Farrar and colleagues, with an educational mishel from [employer]. 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 Bedside ok. Labs reviewed. [facility] this Thursday for NT. 4w. 02/15/25 <del>?</del> 16w 6d 60.044 kg 119/73 Nga Leiva, at 16 weeks and 6 days gestation, presents for routine care and review of results. She was previously treated for UTI symptoms and currently denies urinary frequency, urgency, cramping, or spotting. Nausea has significantly improved. heart rate is 145 bpm, and she reports no concerns at today?s visit. Urine dipstick remains positive for nitrates. Plan: Prescribe antibiotic for current UTI Initiate nightly antibiotic suppression therapy for 30 days Repeat urine culture after suppression period Continue OTC vitamins Attend scheduled 20-week anatomy scan at [facility] Follow up in 4 weeks for routine care 04/19/25 <del>?</del> 25w 6d 63.673 kg 106/68 absent unknown 26 146 active , 25w6d No CTX/LOF/VB, good FM. FHR 146. MFM/ Echo: small muscular and perimembranous VSD, EFW 14th %ile (823g), hypocoiled cord. Awaiting official [facility] report. Plan: Ordered 1-hr GTT. F/u in 4 wks for growth monitoring. Advised high-protein diet (chicken, fish, eggs), increase fruits/vegetables, avoid fried/heavy foods. Continue vitamins. Will call with glucose results if abnormal. LIS Calculator Estimated Delivery Date Method Current WG Current Estimate 07/27/25 Ultrasound #1 25w 6d Specific Issue/Plans - [facility] Ultrasound (04/17/2025): - Gestational age: 25 weeks 6 days - Estimated weight: 823 grams (14th percentile) - presentation: Cephalic - Findings: Hypo-coiled umbilical cord, growth restriction - Cardio-echocardiogram (04/17/2025): - 4 chamber view - 2 pulmonary veins visualized - Bilateral a-v concordance - Left atrium closest to the spine - Normal situs - Septal leaflet insertion of tricuspid slightly more apical - Small muscular VSD visualized - Small perimembranous VSD visualized - Interatrial septum within normal limits Office Procedures OB Clinic LOC & Office Proc's Nursing/Assessment Patient Status: Established Patient OB Clinic Nursing Assessment: Medication Reconciliation, Update PMH in EMR and Vital Signs OB Clinic Coordination of Care: Complex Care and Chronic Disease 1-5, Consent,records obtained, informed consent, Education Simp Pt/Fam, Lab and Imaging orders, Results/Orders obtained and Staff clarify orders Special Needs: Heart tones Established Patient Charge Established Patient Point Assignment: 135 Established Patient Point Charge: EP Level 4 (120-155) Assessment & Plan Diagnosis / Problem List (1) : Status: Acute (2) UTI in , antepartum: Status: Acute (3) Maternal care for other abnormalities of pelvic organs, third trimester: Status: Acute
== END 2025-04-19 10:25 | disposition home or self-care (01) ==
LOC: HODSOBC 09:45
PROVIDERS: Supervising Provider Obstetrics & Gynecology; Visit Provider Obstetrics & Gynecology
DX: O09.892 Supervision of other high risk pregnancies, second trimester (principal); O23.42 Unspecified infection of urinary tract in pregnancy, second trimester; O34.92 Maternal care for abnormality of pelvic organ, unspecified, second trimester; O35.BXX0 Maternal care for other (suspected) fetal abnormality and damage, fetal cardiac anomalies, not applicable or unspecified; Z3A.25 25 weeks gestation of pregnancy; Z88.8 Allergy status to other drugs, medicaments and biological substances
CPT/HCPCS: 99214; G0463

== ENCOUNTER 2025-05-17 11:02 | Outpatient (AMB) | payer MEDICAID, SELFPAY ==
[2025-05-17 11:25] VITALS: BP 107/69; PULSE 98; RESP 17; TEMP 36.7; O2SAT 98; BMI 24.6
--- NOTE | 2025-05-17 11:25 | OBCLNT_ITS ---
Vital Signs 05/17/25 11:25 Height 1.63 m Height Method Measured Weight 65.487 kg Weight Measurement Method Standing Scale BMI 24.6 BP 107/69 Blood Pressure Source Automatic Cuff Blood Pressure Location Right Upper Arm Position Sitting Respiration 17 Pulse 98 Pulse Source Monitor Temp 98.0 F Temp Source Temporal Artery Scan Pulse Oximetry (%) 98 Oxygen Delivery Method Room Air Allergies/Home Meds Allergies & Medications Allergies lactose Allergy (Severe, Verified 05/30/25 13:34) Diarrhea Medication Reconciliation doxylamine 10 mg-pyridoxine (vit B6) 10 mg tablet,delayed release (Diclegis) 1 tab PO QDAY 30 days #30 tabs 12/14/24 [Rx Confirmed 05/30/25] vitamins with calcium no.72-iron 27 mg-folic acid 1 mg tablet ( Vitamins Plus Low Iron) 1 tab PO QDAY 90 days #90 tabs 12/14/24 [Rx Confirmed 05/30/25] nitrofurantoin macrocrystal 100 mg capsule 100 mg PO QHS 30 days #30 caps 02/15/25 [Rx Confirmed 05/30/25] Intake Visit Data Collection New Patient or Established: Established Patient (seen at [facility] within 3 years) Reason for Visit:: C Consent obtained for Telemed Visit: No Seen by Clinical Staff ONLY (RN/MA): No 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 1. Little interest or pleasure in doing things: not at all PHQ-9 8. Moving or speaking so slowly that other people could have noticed? - Or the opposite - being so fidgety or restless that you have been moving around a lot more than usual: not at all Source: Developed by Drs. Butch LCatie Stafford Kurt Kroenke and colleagues, with an educational mishel from [employer]. 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 Bedside ok. Labs reviewed. [facility] this Thursday for NT. 4w. 02/15/25 -?-?-?-?-?-?-?-?-?-?-?-?- w 6d 60.044 kg 119/73 Nga Leiva, at 16 weeks and 6 days gestation, presents for routine care and review of results. She was previously treated for UTI symptoms and currently denies urinary frequency, urgency, cramping, or spotting. Nausea has significantly improved. heart rate is 145 bpm, and she reports no concerns at today?s visit. Urine dipstick remains positive for nitrates. Plan: Prescribe antibiotic for current UTI Initiate nightly antibiotic suppression therapy for 30 days Repeat urine culture after suppression p eriod Continue OTC vitamins Attend scheduled 20-week anatomy scan at [facility] Follow up in 4 weeks for routine care 04/19/25 -?-?-?-?-?-?-?-?-?-?-?-?- 25w 6d 63.673 kg 106/68 absent unknown 26 146 active , 25w6d No CTX/LOF/VB, good FM. FHR 146. MFM/Fet al Echo: small muscular and perimembranous VSD, EFW 14th %ile (823g), hypocoiled cord. Awaiting official [facility] report. Plan: Ordered 1- hr GTT. F/u in 4 wks for growth monitoring. Advised high -protein diet (chicken, fish, eggs), increase fruits/vegetables, avoid fried/heavy foods. Continue vitamins. Will call with glucose results if abnormal. 05/17/25 -?-?-?-?-?-?-?-?-?-?-?-?- 29w 6d 65.487 kg 107/69 absent cephalic 30 active No contractions, LOF, VB and reports good FM. Denies CAMPBELL, VC, and epigastric pain. - Nga Leiva is a 30-year-old female , 3 para 1, presenting for routine care at 29 weeks and 6 days gestation. - Patient was counseled about diet and weight management. Return in 2w with labs 05/30/25 -?-?-?-?-?-?-?-?-?-?-?-?- 31w 5d 68.039 kg 125/70 absent unknown 30 145 active 31w5d with positive urine culture, no current symptoms, FHR 145, FM reassuring, reports sacral pressure. Plan: Give Tdap today, encourage walking and use of exercise ball, continue routine care, follow up in 2 weeks. LIS Calculator Estimated Delivery Date Method Current Current Estimate 07/27/25 Ultrasound #1 33w 5d Specific Issue/Plans - [facility] Ultrasound (04/17/2025): - Gestational age: 25 weeks 6 days - Estimated weight: 823 grams (14th percentile) - presentation: Cephalic - Findings: Hypo-coiled umbilical cord, growth restriction - Cardio-echocardiogram (04/17/2025): - 4 chamber view - 2 pulmonary veins visualized - Bilateral a-v concordance - Left atrium closest to the spine - Normal situs - Septal leaflet insertion of tricuspid slightly more apical - Small muscular VSD visualized - Small perimembranous VSD visualized - Interatrial septum within normal limits Office Procedures OB Clinic LOC & Office Proc's Nursing/Assessment Patient Status: Established Patient OB Clinic Nursing Assessment: Medication Reconciliation, Update PMH in EMR and Vital Signs OB Clinic Coordination of Care: Complex Care and Chronic Disease 1-5, Consent,records obtained, informed consent, Education Simp Pt/Fam, 4+ Authorizations needed and Results/Orders obtained Special Needs: Heart tones Established Patient Charge Established Patient Point Assignment: 135 Established Patient Point Charge: EP Level 4 (120-155) Assessment & Plan Diagnosis / Problem List (1) Maternal care for other abnormalities of pelvic organs, third trimester: Status: Acute
== END 2025-05-17 11:49 | disposition home or self-care (01) ==
LOC: HODSOBC 11:02
PROVIDERS: Supervising Provider Obstetrics & Gynecology; Visit Provider Obstetrics & Gynecology
DX: O09.893 Supervision of other high risk pregnancies, third trimester (principal); O34.83 Maternal care for other abnormalities of pelvic organs, third trimester; Z3A.29 29 weeks gestation of pregnancy
CPT/HCPCS: 99214; G0463

== ENCOUNTER 2025-05-30 13:23 | Outpatient (AMB) | payer MEDICAID, SELFPAY ==
--- NOTE | 2025-05-30 13:33 | OBCLNT_ITS ---
Vital Signs 05/30/25 13:34 Height 1.63 m Height Method Measured Weight 68.039 kg Weight Measurement Method Standing Scale BMI 25.6 BP 125/70 Blood Pressure Source Automatic Cuff Blood Pressure Location Right Upper Arm Position Sitting Respiration 17 Pulse 108 H Pulse Source Monitor Temp 97.8 F Temp Source Temporal Artery Scan Pulse Oximetry (%) 96 Oxygen Delivery Method Room Air Allergies/Home Meds Allergies & Medications Allergies lactose Allergy (Severe, Verified 05/30/25 13:34) Diarrhea Medication Reconciliation doxylamine 10 mg-pyridoxine (vit B6) 10 mg tablet,delayed release (Diclegis) 1 tab PO QDAY 30 days #30 tabs 12/14/24 [Rx Confirmed 05/30/25] vitamins with calcium no.72-iron 27 mg-folic acid 1 mg tablet ( Vitamins Plus Low Iron) 1 tab PO QDAY 90 days #90 tabs 12/14/24 [Rx Confirmed 05/30/25] nitrofurantoin macrocrystal 100 mg capsule 100 mg PO QHS 30 days #30 caps 02/15/25 [Rx Confirmed 05/30/25] Intake Visit Data Collection New Patient or Established: Established Patient (seen at [facility] within 3 years) Reason for Visit:: C Consent obtained for Telemed Visit: No Seen by Clinical Staff ONLY (RN/MA): No Police Detective Required: No Do You Feel Safe at Home: Yes Authorities Contacted: N/A PCP or OBGYN visit in last 3 months: Yes Date of Last PCP or OBGYN visit: 05/17/25 Hx Now: Yes Are you currently on any form of Control: No Pain Present Currently: No Pain Scale Used: Ochoa-Sosa/Numerical Pain scale:: 0 Smoking Status Smoking Status: Never smoker Questionnaires Covid-19 Vaccine Questionnaire Has patient been vacinated for Covid-19 Have you been vacinated for Covid-19: Yes PHQ-9 PHQ-2 Over the last 2 weeks, how often have you been bothered by any of the following problems? 1. Little interest or pleasure in doing things: not at all PHQ-9 8. Moving or speaking so slowly that other people could have noticed? - Or the opposite - being so fidgety or restless that you have been moving around a lot more than usual: not at all Source: Developed by Drs. Butch LCatie Stafford Kurt Kroenke and colleagues, with an educational mishel from [employer]. 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 Bedside ok. Labs reviewed. [facility] this Thursday for NT. 4w. 02/15/25 -?-?-?-?-?-?-?-?-?-?-?-?- 16w 6d 60.044 kg 119/73 Nga Leiva, at 16 weeks and 6 days gestation, presents for routine care and review of results. She was previously treated for UTI symptoms and currently denies urinary frequency, urgency, cramping, or spotting. Nausea has significantly improved. heart rate is 145 bpm, and she reports no concerns at today?s visit. Urine dipstick remains positive for nitrates. Plan: Prescribe antibiotic for current UTI Initiate nightly antibiotic suppression therapy for 30 days Repeat urine culture after suppression p eriod Continue OTC vitamins Attend scheduled 20-week anatomy scan at [facility] Follow up in 4 weeks for routine care 04/19/25 -?-?-?-?-?-?-?-?-?-?-?-?- 25w 6d 63.673 kg 106/68 absent unknown 26 146 active , 25w6d No CTX/LOF/VB, good FM. FHR 146. MFM/Fet al Echo: small muscular and perimembranous VSD, EFW 14th %ile (823g), hypocoiled cord. Awaiting official [facility] report. Plan: Ordered 1- hr GTT. F/u in 4 wks for growth monitoring. Advised h igh-protein diet (chicken, fish, eggs), increase fruits/vegetables, avoid fried/heavy foods. Continue vitamins. Will call with glucose results if abnormal. 05/30/25 -?-?-?-?-?-?-?-?-?--?-?-?- 31w 5d 68.039 kg 125/70 absent unknown 30 145 active 31w5d with positive urine culture, no current symptoms, FHR 145, FM reassuring, reports sacral pressure. Plan: Give Tdap today, encourage walking and use of exercise ball, continue routine care, follow up in 2 weeks. LIS Calculator Estimated Delivery Date Method Current WG Current Estimate 07/27/25 Ultrasound #1 32w 0d Specific Issue/Plans - [facility] Ultrasound (04/17/2025): - Gestational age: 25 weeks 6 days - Estimated weight: 823 grams (14th percentile) - presentation: Cephalic - Findings: Hypo-coiled umbilical cord, growth restriction - Cardio-echocardiogram (04/17/2025): - 4 chamber view - 2 pulmonary veins visualized - Bilateral a-v concordance - Left atrium closest to the spine - Normal situs - Septal leaflet insertion of tricuspid slightly more apical - Small muscular VSD visualized - Small perimembranous VSD visualized - Interatrial septum within normal limits Office Procedures OB Clinic LOC & Office Proc's Nursing/Assessment Patient Status: Established Patient OB Clinic Nursing Assessment: Medication Reconciliation, Update PMH in EMR and Vital Signs OB Clinic Coordination of Care: Complex Care and Chronic Disease 1-5, Consent,records obtained, informed consent and Education Simp Pt/Fam Special Needs: Heart tones Established Patient Charge Established Patient Point Assignment: 105 Established Patient Point Charge: EP Level 3 (80-115) Immunizations diphth,pertus(acell),tetanus 2.5 Lf unit-8 mcg-5 Lf/0.5mL IM syringe Performing Provider: Arthur Kohler MD Performing Location: [facility] Administered by: Magdalene Trujillo MA on 05/30/25 14:40 Dose Route Admin Location Dispensed Lot Number Expiration Date [facility] Reimbursement Specialist 0.5 mL IM Left Deltoid 0.5 mL [id number] 07/28/27 44516-275-55 [employer] VIS Given Date VIS Provided VIS Publication Date 05/30/25 Single Vaccine 24 Eligibility Eligibility Date Funding Source [facility] Assessment & Plan Diagnosis / Problem List (1) Maternal care for other abnormalities of pelvic organs, third trimester: Status: Acute
[2025-05-30 13:34] VITALS: BP 125/70; PULSE 108; RESP 17; TEMP 36.6; O2SAT 96; BMI 25.6
== END 2025-05-30 13:45 | disposition home or self-care (01) ==
LOC: HODSOBC 13:23
PROVIDERS: Supervising Provider Obstetrics & Gynecology; Visit Provider Obstetrics & Gynecology
DX: O09.893 Supervision of other high risk pregnancies, third trimester (principal); O34.83 Maternal care for other abnormalities of pelvic organs, third trimester; Z3A.31 31 weeks gestation of pregnancy; Z23 Encounter for immunization; Z91.011 Allergy to milk products
CPT/HCPCS: 90471; 90715; 99213; G0463

== ENCOUNTER 2025-06-16 13:23 | Outpatient (AMB) | payer MEDICAID, SELFPAY ==
[2025-06-16 13:34] VITALS: BP 111/68; PULSE 87; RESP 16; TEMP 36.2; O2SAT 98; BMI 25.1
--- NOTE | 2025-06-16 13:34 | OBCLNT_ITS ---
Vital Signs 06/16/25 13:34 Height 1.63 m Height Method Stated Weight 66.848 kg Weight Measurement Method Standing Scale BMI 25.1 BP 111/68 Blood Pressure Source Automatic Cuff Blood Pressure Location Left Upper Arm Position Sitting Respiration 16 Pulse 87 Pulse Source Monitor Temp 97.2 F Temp Source Oral Pulse Oximetry (%) 98 Oxygen Delivery Method Room Air Allergies/Home Meds Allergies & Medications Allergies lactose Allergy (Severe, Verified 07/20/25 13:54) Diarrhea Medication Reconciliation vitamins with calcium no.72-iron 27 mg-folic acid 1 mg tablet ( Vitamins Plus Low Iron) 1 tab PO QDAY 90 days #90 tabs 12/14/24 [Rx Confirmed 07/20/25] ferrous sulfate 325 mg (65 mg iron) tablet (Feosol) 325 mg PO QDAY 07/11/25 [History Confirmed 07/20/25] Intake Visit Data Collection New Patient or Established: Established Patient (seen at [facility] within 3 years) Reason for Visit:: OBC Seen by Clinical Staff ONLY (RN/MA): No 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 1. Little interest or pleasure in doing things: not at all 2. Feeling down, depressed, or hopeless: not at all Total score: 0 PHQ-9 3. Trouble falling or staying asleep, or sleeping too much: Not at all 4. Feeling tired or having little energy: Not at all 5. Poor appetite or overeating: Not at all 6. Feeling bad about yourself - or that you are a failure or have let yourself or your family down: Not at all 7. Trouble concentrating on things, such as reading the newspaper or watching television: Not at all 8. Moving or speaking so slowly that other people could have noticed? - Or the opposite - being so fidgety or restless that you have been moving around a lot more than usual: not at all 9. Thoughts that you would be better off or of hurting yourself in some way: Not at all Total score: 0 If you checked off any problems, how difficult have these problems made it for you to do your work, take care of things at home, or get along with other people?: not difficult at all Source: Developed by Drs. Butch Rico, Catie Acevedo, Giancarlo Farrar and colleagues, with an educational mishel from [employer]. 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 Bedside ok. Labs reviewed. [facility] this Thursday for NT. 4w. 02/15/25 -?-?-?-?-?-?-?-?-?-?-?-?- 17w 4d 60.044 kg 119/73 Nga Leiva, at 16 weeks and 6 days gestation, presents for routine care and review of results. She was previously treated for UTI symptoms and currently denies urinary frequency, urgency, cramping, or spotting. Nausea has significantly improved. heart r ate is 145 bpm, and she reports no concerns at today?s visit. Urine dipstick remains positive for nitrates. Plan: Prescribe antibiotic for current UTI Initiate nightly antibiotic suppression therapy for 30 days Repeat urine culture after suppression p eriod Continue OTC vitamins Attend scheduled 20-week anatomy scan at [facility] Follow up in 4 weeks for routine care 04/19/25 -?-?-?-?-?-?-?-?-?-?-?-?- 26w 4d 63.673 kg 106/68 absent unknown 26 146 active , 25w6d No CTX/LOF/VB, good FM. FHR 146. MFM/Fet al Echo: small muscular and perimembranous VSD, EFW 14th %ile (823g), hypocoiled cord. Awaiting official [facility] report. Plan: Ordered 1- hr GTT. F/u in 4 wks for growth monitoring. Advised high-protein diet (chicken, fish, eggs), increase fruits/vegetables, avoid fried/heavy foods. Continue vitamins. Will call with glucose results if abnormal. 05/17/25 -?-?-?--?-?-?-?-?-?-?-?-?- 30w 4d 65.487 kg 107/69 absent cephalic 30 active No contractions, LOF, VB and reports good FM. Denies CAMPBELL, VC, and epigastric pain. - Nga Leiva is a 30-year-old female , 3 para 1, presenting for routine care at 29 weeks and 6 days gestation. - Patient was counseled about diet and weight management. Return in 2w with labs 05/30/25 -?-?-?-?-?-?-?-?-?-?-?-?- 32w 3d 68.039 kg 125/70 absent unknown 30 145 active 31w5d with positive urine culture, no current symptoms, FHR 145, FM reassuring, reports sacral pressure. Plan: Give Tdap today, encourage walking and use of exercise ball, continue routine care, follow up in 2 weeks. 06/16/25 -?-?-?-?-?-?-?-?-?-?-?-?- 34w 6d 66.848 kg 111/68 absent unknown 35 active - Nga Leiva is a 3 para 1 patient at 34 weeks and 1 day gestation presenting for routine care and 2-week follow-up after treatment for UTI at last appointment. - She completed her UTI treatment and re ports no more UTI symptoms. - She reports the baby is active with no contractions, leaking, or cramping. - She had a recent hospital visit due to heartburn that was causing pressure and felt really bad. - She received antacids at the [facility] which improved her symptoms. - A doctor recommended iron supplement ation, which she is now taking. - She is performing kick counts an d reports the baby moves frequently, even during sleep at night. Plan - Continue iron supplementation as recom mended - Perform kick counts twice daily: sit quietly after meals and count movements for 30 minutes, expecting at least 2-3 proper movements; if fewer movements felt, wait another 30 minutes, and if less than 3 movements in one hour total, come in for evaluation - Follow up in 2 weeks 06/28/25 -?-?-?-?-?--?-?-?-?-?-?-?- 36w 4d 69.059 kg 115/71 absent unknown 36 active Patient reports back contractions for 2 days throughout the whole day that come and go, denies LOF and VB, and reports good FM. Denies CAMPBELL, VC, and epigastric pain. - Follow up in one week for weekly visits - At 39 weeks, check cervix and sweep me mbranes - For back contractions/sciatic pain: wa rm showers, Tylenol, and rest - Return immediately if experiencing vom iting to rule out labor 07/07/25 -?-?-?-?-?-?-?-?-?-?-?-?- 37w 6d 69.513 kg 133/77 absent unknown 38 active - Reports ongoing back pain in the third trimester - Experiencing irregular contractions - Patient does not time the contractio ns - Advised to seek evaluation if contra ctions become regular every 5-7 minutes - Notes decreased movement - Attributes this to reduced space as progresses - Still feels movement when placing campbell nd on abdomen - Denies any leaking or unusual discharge Plan - Perform Group B Streptococcus (GBS) sc reening today - Continue suppressive therapy for recur rent UTIs - Monitor movement and activity - Perform membrane sweep at 39 weeks - Follow up appointment in 2 weeks LIS Calculator Estimated Delivery Date Method Current WG Current Estimate 07/22/25 LMP (Certain) 40w 0d Other Estimates 07/27/25 Ultrasound #1 39w 2d Specific Issue/Plans - [facility] Ultrasound (04/17/2025): - Gestational age: 25 weeks 6 days - Estimated weight: 823 grams (14th percentile) - presentation: Cephalic - Findings: Hypo-coiled umbilical cord, growth restriction - Cardio-echocardiogram (04/17/2025): - 4 chamber view - 2 pulmonary veins visualized - Bilateral a-v concordance - Left atrium closest to the spine - Normal situs - Septal leaflet insertion of tricuspid slightly more apical - Small muscular VSD visualized - Small perimembranous VSD visualized - Interatrial septum within normal limits Notes Visit Date: 06/28/25 Last Updated by: Arthur Kohler MD - Ultrasound (June 21, 2025): - growth at 55th percentile - Estimated weight 6 pounds at 34 weeks gestation - Previously noted VSD and hypercoiled cord have resolved - heart rate: 158-159 bpm (normal) Assessment & Plan Diagnosis / Problem List (1) Maternal care for other abnormalities of pelvic organs, third trimester: Status: Acute (2) : Status: Acute (3) UTI in , antepartum: Status: Acute (4) Ovarian cyst affecting in first trimester, antepartum: Status: Acute Plan Problem List - Urinary tract infection - Gastroesophageal reflux disease - Iron deficiency anemia Assessment 34-week and 1-day patient with history of recently treated UTI, now resolved with completion of antibiotic course and absence of urinary symptoms. Patient experienced recent episode of heartburn with associated pressure requiring hospital evaluation, which resolved with antacid treatment. Iron supplementation was recommended during hospital visit. heart rate is 148 bpm with active movement reported by patient, including nocturnal activity. Plan - Continue iron supplementation as recommended - Perform kick counts twice daily: sit quietly after meals and count movements for 30 minutes, expecting at least 2-3 proper movements; if fewer movements felt, wait another 30 minutes, and if less than 3 movements in one hour total, come in for evaluation - Follow up in 2 weeks 1. Progress Reviewed gestational age (34 weeks and 1 day), growth, and heart ra te (148 bpm). Planned frequent visits (every 2 weeks until 36 weeks, then weekly). 2. Instructed patient to monitor movements twice daily for 30 minutes each session, expecting at least 2-3 proper movements per 30-minute period. If less than 3 movements in one hour, advised to come in for evaluation immediately. 3. Testing Counseled on routine third-trimester labs per guidelines. Discussed potential need for ultrasound or monitoring based on risk factors. 4. Preeclampsia Precaution Educated on preeclampsia signs: severe headache, vision changes, right upper quadrant pain, sudden swelling. Advised urgent reporting of symptoms and discussed blood pressure monitoring if high risk. 5. Labor Precautions Reviewed labor signs: regular contractions, pelvic pressure, back pain, bleeding, or fluid leakage. Instructed to seek immediate care for these symptoms. 6. Lifestyle and Delivery Preparation Reinforced vitamins, nutrition, and safe activity. Discussed plan, pain management, and . Advised on labor preparation (e.g., hospital bag) and expectations. 7. Psychosocial Support Assessed emotional well-being and offered resources for mental health or parenting support.
== END 2025-06-16 13:43 | disposition home or self-care (01) ==
PROVIDERS: Supervising Provider Obstetrics & Gynecology; Visit Provider Obstetrics & Gynecology
DX: O09.893 Supervision of other high risk pregnancies, third trimester (principal); O34.83 Maternal care for other abnormalities of pelvic organs, third trimester; N83.209 Unspecified ovarian cyst, unspecified side; O99.613 Diseases of the digestive system complicating pregnancy, third trimester; K21.9 Gastro-esophageal reflux disease without esophagitis; O99.013 Anemia complicating pregnancy, third trimester; D50.9 Iron deficiency anemia, unspecified; Z3A.34 34 weeks gestation of pregnancy; Z91.011 Allergy to milk products; Z87.440 Personal history of urinary (tract) infections
CPT/HCPCS: 99213; G0463

== ENCOUNTER 2025-06-28 15:15 | Outpatient (AMB) | payer MEDICAID, SELFPAY ==
--- NOTE | 2025-06-28 15:22 | OBCLNT_ITS ---
Vital Signs 06/28/25 15:31 Height 1.63 m Height Method Stated Weight 69.059 kg Weight Measurement Method Standing Scale BMI 25.9 BP 115/71 Blood Pressure Source Automatic Cuff Blood Pressure Location Left Upper Arm Position Sitting Respiration 18 Pulse 96 Pulse Source Monitor Temp 97.8 F Temp Source Oral Pulse Oximetry (%) 98 Oxygen Delivery Method Room Air Allergies/Home Meds Allergies & Medications Allergies lactose Allergy (Severe, Verified 06/28/25 15:32) Diarrhea Medication Reconciliation doxylamine 10 mg-pyridoxine (vit B6) 10 mg tablet,delayed release (Diclegis) 1 tab PO QDAY 30 days #30 tabs 12/14/24 [Rx Confirmed 06/28/25] vitamins with calcium no.72-iron 27 mg-folic acid 1 mg tablet ( Vitamins Plus Low Iron) 1 tab PO QDAY 90 days #90 tabs 12/14/24 [Rx Confirmed 06/28/25] nitrofurantoin macrocrystal 100 mg capsule 100 mg PO QHS 30 days #30 caps 02/15/25 [Rx Confirmed 06/28/25] Intake Visit Data Collection New Patient or Established: Established Patient (seen at [facility] within 3 years) Reason for Visit:: CARE Seen by Clinical Staff ONLY (RN/MA): No 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 1. Little interest or pleasure in doing things: not at all 2. Feeling down, depressed, or hopeless: not at all Total score: 0 PHQ-9 3. Trouble falling or staying asleep, or sleeping too much: Not at all 4. Feeling tired or having little energy: Not at all 5. Poor appetite or overeating: Not at all 6. Feeling bad about yourself - or that you are a failure or have let yourself or your family down: Not at all 7. Trouble concentrating on things, such as reading the newspaper or watching television: Not at all 8. Moving or speaking so slowly that other people could have noticed? - Or the opposite - being so fidgety or restless that you have been moving around a lot more than usual: not at all 9. Thoughts that you would be better off or of hurting yourself in some way: Not at all Total score: 0 Source: Developed by Drs. Butch Rico, Catie Acevedo, Giancarlo Farrar and colleagues, with an educational mishel from [employer]. 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 Bedside ok. Labs reviewed. [facility] this Thursday for NT. 4w. 02/15/25 -?-?-?-?-?-?-?-?-?-?-?-?- w 6d 60.044 kg 119/73 Nga Leiva, at 16 weeks and 6 days gestation, presents for routine care and review of results. She was previously treated for UTI symptoms and currently denies urinary frequency, urgency, cramping, or spotting. Nausea has significantly improved. heart rate is 145 bpm, and she reports no concerns at today?s visit. Urine dipstick remains positive for nitrates. Plan: Prescribe antibiotic for current UTI Initiate nightly antibiotic suppression therapy for 30 days Repeat urine culture after suppression p eriod Continue OTC vitamins Attend scheduled 20-week anatomy scan at [facility] Follow up in 4 weeks for routine care 04/19/25 -?-?-?-?-?-?-?-?-?-?-?-?- 25w 6d 63.673 kg 106/68 absent unknown 26 146 active , 25w6d No CTX/LOF/VB, good FM. FHR 146. MFM/Fet al Echo: small muscular and perimembranous VSD, EFW 14th %ile (823g), hypocoiled cord. Awaiting official [facility] report. Plan: Ordered 1- hr GTT. F/u in 4 wks for growth monitoring. Advised high-protein diet (chicken, fish, eggs), increase fruits/vegetables, avoid fried/heavy foods. Continue vitamins. Will call with glucose results if abnormal. 05/17/25 -?-?-?-?-?-?-?-?-?-?-?-?- 29w 6d 65.487 kg 107/69 absent cephalic 30 active No contractions, LOF, VB and reports good FM. Denies CAMPBELL, VC, and epigastric pain. - Nga Leiva is a 30-year-old female , 3 para 1, presenting for routine care at 29 weeks and 6 days gestation. - Patient was counseled about diet and weight management. Return in 2w with labs 05/30/25 -?-?-?-?-?-?-?-?-?-?-?-?- 31w 5d 68.039 kg 125/70 absent unknown 30 145 active 31w5d with positive urine culture, no current symptoms, FHR 145, FM reassuring, reports sacral pressure. Plan: Give Tdap today, encourage walking and use of exercise ball, continue routine care, follow up in 2 weeks. 06/28/25 -?-?-?-?-?-?-?-?-?-?-?-?- 35w 6d 69.059 kg 115/71 absent unknown 36 active Patient reports back contractions for 2 days throughout the whole day that come and go, denies LOF and VB, and reports good FM. Denies CAMPBELL, VC, and epigastric pain. - Follow up in one week for weekly visits - At 39 weeks, check cervix and sweep me mbranes - For back contractions/sciatic pain: wa rm showers, Tylenol, and rest - Return immediately if experiencing vom iting to rule out labor LIS Calculator Estimated Delivery Date Method Current WG Current Estimate 07/27/25 Ultrasound #1 36w 0d Specific Issue/Plans - [facility] Ultrasound (04/17/2025): - Gestational age: 25 weeks 6 days - Estimated weight: 823 grams (14th percentile) - presentation: Cephalic - Findings: Hypo-coiled umbilical cord, growth restriction - Cardio-echocardiogram (04/17/2025): - 4 chamber view - 2 pulmonary veins visualized - Bilateral a-v concordance - Left atrium closest to the spine - Normal situs - Septal leaflet insertion of tricuspid slightly more apical - Small muscular VSD visualized - Small perimembranous VSD visualized - Interatrial septum within normal limits Notes Visit Date: 06/28/25 Last Updated by: Arthur Kohler MD - Ultrasound (June 21, 2025): - growth at 55th percentile - Estimated weight 6 pounds at 34 weeks gestation - Previously noted VSD and hypercoiled cord have resolved - heart rate: 158-159 bpm (normal) Office Procedures OBC Clinic LOC & Office Proc's Nursing/Assessment Patient Status: Established Patient OB Clinic Nursing Assessment: Medication Reconciliation, Update PMH in EMR and Vital Signs OB Clinic Coordination of Care: Complex Care and Chronic Disease 1-5, Consent,records obtained, informed consent, Education Simp Pt/Fam, Lab and Imaging orders, Results/Orders obtained and Staff clarify orders Special Needs: Heart tones Established Patient Charge Established Patient Point Assignment: 135 Established Patient Point Charge: EP Level 4 (120-155) Assessment & Plan Diagnosis / Problem List (1) Maternal care for other abnormalities of pelvic organs, third trimester: Status: Acute Plan Problem List - , third trimester - Low back pain - Sciatic pain Assessment 35 weeks and 6 days gestation in a 3 para 1 patient with previously resolved vascular issues including VST and hypercoiled cord as documented on recent ultrasound from the . growth is appropriate at 55th percentile with estimated weight of 6 pounds at 34 weeks gestation. heart rate is reassuring at 158-159 bpm. Patient reports back contractions for 2 days that are irregular and intermittent, described as lower back pain that stays localized, consistent with sciatic pain and pelvic girdle stretching. Previous UTI has been treated and patient is on iron supplements. History of reflux and vomiting has resolved. Plan - Follow up in one week for weekly visits - At 39 weeks, check cervix and sweep membranes - For back contractions/sciatic pain: warm showers, Tylenol, and rest - Return immediately if experiencing vomiting to rule out labor 1. Progress Reviewed gestational age (35 weeks and 6 days), growth (55th percentile, approximately 6 pounds), and heart rate (158-159 bpm, normal). Planned frequent visits (weekly from now on). 2. Instructed patient to monitor movements and report decreases immediately. 3. Testing Counseled on routine third-trimester labs per guidelines. Discussed potential need for ultrasound or monitoring based on risk factors. 4. Preeclampsia Precaution Educated on preeclampsia signs: severe headache, vision changes, right upper quadrant pain, sudden swelling. Advised urgent reporting of symptoms and discussed blood pressure monitoring if high risk. 5. Labor Precautions Reviewed labor signs: regular contractions, pelvic pressure, back pain, bleeding, or fluid leakage. Instructed to seek immediate care for these symptoms. 6. Lifestyle and Delivery Preparation Reinforced vitamins, nutrition, and safe activity. Discussed plan, pain management, and . Advised on labor preparation (e.g., hospital bag) and expectations. 7. Psychosocial Support Assessed emotional well-being and offered resources for mental health or parenting support.
[2025-06-28 15:31] VITALS: BP 115/71; PULSE 96; RESP 18; TEMP 36.6; O2SAT 98; BMI 25.9
== END 2025-06-28 16:21 | disposition home or self-care (01) ==
PROVIDERS: Supervising Provider Obstetrics & Gynecology; Visit Provider Obstetrics & Gynecology
DX: O09.893 Supervision of other high risk pregnancies, third trimester (principal); O34.83 Maternal care for other abnormalities of pelvic organs, third trimester; O99.353 Diseases of the nervous system complicating pregnancy, third trimester; M54.40 Lumbago with sciatica, unspecified side; Z3A.35 35 weeks gestation of pregnancy
CPT/HCPCS: 99214; G0463

== ENCOUNTER 2025-07-07 10:36 | Outpatient (AMB) | payer MEDICAID, SELFPAY ==
--- NOTE | 2025-07-07 10:47 | OBCLNT_ITS ---
Vital Signs 07/07/25 10:48 Height 1.63 m Height Method Stated Weight 69.513 kg Weight Measurement Method Standing Scale BMI 26.2 BP 133/77 H Blood Pressure Source Automatic Cuff Blood Pressure Location Left Upper Arm Position Sitting Respiration 16 Pulse 84 Pulse Source Monitor Temp 98.2 F Temp Source Oral Pulse Oximetry (%) 98 Oxygen Delivery Method Room Air Allergies/Home Meds Allergies & Medications Allergies lactose Allergy (Severe, Verified 07/07/25 10:48) Diarrhea Medication Reconciliation doxylamine 10 mg-pyridoxine (vit B6) 10 mg tablet,delayed release (Diclegis) 1 tab PO QDAY 30 days #30 tabs 12/14/24 [Rx Confirmed 07/07/25] vitamins with calcium no.72-iron 27 mg-folic acid 1 mg tablet ( Vitamins Plus Low Iron) 1 tab PO QDAY 90 days #90 tabs 12/14/24 [Rx Confirmed 07/07/25] nitrofurantoin macrocrystal 100 mg capsule 100 mg PO QHS 30 days #30 caps 02/15/25 [Rx Confirmed 07/07/25] Intake Visit Data Collection New Patient or Established: Established Patient (seen at [facility] within 3 years) Reason for Visit:: OBC Seen by Clinical Staff ONLY (RN/MA): No 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 1. Little interest or pleasure in doing things: not at all 2. Feeling down, depressed, or hopeless: not at all Total score: 0 PHQ-9 3. Trouble falling or staying asleep, or sleeping too much: Not at all 4. Feeling tired or having little energy: Not at all 5. Poor appetite or overeating: Not at all 6. Feeling bad about yourself - or that you are a failure or have let yourself or your family down: Not at all 7. Trouble concentrating on things, such as reading the newspaper or watching television: Not at all 8. Moving or speaking so slowly that other people could have noticed? - Or the opposite - being so fidgety or restless that you have been moving around a lot more than usual: not at all 9. Thoughts that you would be better off or of hurting yourself in some way: Not at all Total score: 0 If you checked off any problems, how difficult have these problems made it for you to do your work, take care of things at home, or get along with other people?: not difficult at all Source: Developed by Drs. Butch Rico, Catie Acevedo, Giancarlo Farrar and colleagues, with an educational mishel from [employer]. 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 Bedside ok. Labs reviewed. [facility] this Thursday for NT. 4w. 02/15/25 -?-?-?-?-?-?-?-?-?-?-?-?- 17w 4d 60.044 kg 119/73 Nga Leiva, at 16 weeks and 6 days gestation, presents for routine care and review of results. She was previously treated for UTI symptoms and currently denies urinary frequency, urgency, cramping, or spotting. Nausea has significantly improved. heart rate is 145 bpm, and she reports no concerns at today?s visit. Urine dipstick remains positive for nitrates. Plan: Prescribe antibiotic for current UTI Initiate nightly antibiotic suppression therapy for 30 days Repeat urine culture after suppression p eriod Continue OTC vitamins Attend scheduled 20-week anatomy scan at [facility] Follow up in 4 weeks for routine care 04/19/25 -?-?-?-?-?-?-?-?-?-?--?-?- 26w 4d 63.673 kg 106/68 absent unknown 26 146 active , 25w6d No CTX/LOF/VB, good FM. FHR 146. MFM/Fet al Echo: small muscular and perimembra nous VSD, EFW 14th %ile (823g), hypocoiled cord. Awaiting official MFM report. Plan: Ordered 1-hr GTT. F/u in 4 wks for growth monitoring. Advised high-protein diet (chicken, fish, eggs), increase fruits/vegetables, avoid fried/heavy foods. Continue vitamins. Will call with glucose results if abnormal. 05/17/25 -?-?-?-?-?-?-?-?-?-?-?-?- 30w 4d 65.487 kg 107/69 absent cephalic 30 active No contractions, LOF, VB and reports good FM. Denies CAMPBELL, VC, and epigastric pain. - Nga Leiva is a 30-year-old female , 3 para 1, presenting for routine care at 29 weeks and 6 days gestation. - Patient was counseled about diet and weight management. Return in 2w with labs 05/30/25 -?-?-?-?-?-?-?-?-?-?--?-?- 32w 3d 68.039 kg 125/70 absent unknown 30 145 active 31w5d with positive urine culture, no current symptoms, FHR 145, FM reassuring, reports sacral pressure. Plan: Give Tdap today, encourage walking and use of exercise ball, continue routine care, follow up in 2 weeks. 06/28/25 -?-?-?-?-?-?-?-?-?-?-?-?- 36w 4d 69.059 kg 115/71 absent unknown 36 active Patient reports back contractions for 2 days throughout the whole day that come and go, denies LOF and VB, and reports good FM. Denies CAMPBELL, VC, and epigastric pain. - Follow up in one week for weekly visits - At 39 weeks, check cervix and sweep me mbranes - For back contractions/sciatic pain: wa rm showers, Tylenol, and rest - Return immediately if experiencing vom iting to rule out labor 07/07/25 -?-?-?-?-?-?-?-?-?-?-?-?- 37w 6d 69.513 kg 133/77 absent unknown 38 active - Reports ongoing back pain in the third trimester - Experiencing irregular contractions - Patient does not time the contractio ns - Advised to seek evaluation if contra ctions become regular every 5-7 minutes - Notes decreased movement - Attributes this to reduced space as progresses - Still feels movement when placing campbell nd on abdomen - Denies any leaking or unusual discharge Plan - Perform Group B Streptococcus (GBS) sc reening today - Continue suppressive therapy for recur rent UTIs - Monitor movement and activity - Perform membrane sweep at 39 weeks - Follow up appointment in 2 weeks LIS Calculator Estimated Delivery Date Method Current WG Current Estimate 07/22/25 LMP (Certain) 38w 1d Other Estimates 07/27/25 Ultrasound #1 37w 3d Specific Issue/Plans - [facility] Ultrasound (04/17/2025): - Gestational age: 25 weeks 6 days - Estimated weight: 823 grams (14th percentile) - presentation: Cephalic - Findings: Hypo-coiled umbilical cord, growth restriction - Cardio-echocardiogram (04/17/2025): - 4 chamber view - 2 pulmonary veins visualized - Bilateral a-v concordance - Left atrium closest to the spine - Normal situs - Septal leaflet insertion of tricuspid slightly more apical - Small muscular VSD visualized - Small perimembranous VSD visualized - Interatrial septum within normal limits Notes Visit Date: 06/28/25 Last Updated by: Arthur Kohler MD - Ultrasound (June 21, 2025): - growth at 55th percentile - Estimated weight 6 pounds at 34 weeks gestation - Previously noted VSD and hypercoiled cord have resolved - heart rate: 158-159 bpm (normal) Office Procedures OBC Clinic LOC & Office Proc's Nursing/Assessment Patient Status: Established Patient OB Clinic Nursing Assessment: Medication Reconciliation, Update PMH in EMR and Vital Signs OB Clinic Coordination of Care: Education Complex Pt/Fam, Consent,records obtained, informed consent, Lab and Imaging orders, Results/Orders obtained and Staff clarify orders Special Needs: Heart tones Miscellaneous Interventions: Pelvic Comp w/OB cult Established Patient Charge Established Patient Point Assignment: 130 Established Patient Point Charge: EP Level 4 (120-155) Assessment & Plan Diagnosis / Problem List (1) Maternal care for other abnormalities of pelvic organs, third trimester: Status: Acute Plan Problem List - , third trimester - Ventricular septal defect - Recurrent urinary tract infections - Low back pain Assessment at 37 weeks and 1 day gestation with history of ventricular septal defect and hypercoiled umbilical cord, both resolved on recent MFM ultrasound. Patient reports irregular back pain in the third trimester. History of multiple recurrent UTIs in February, March, May, and June, currently on suppressive therapy with no active symptoms. Blood pressure 133/77. heart rate 145 bpm, noted as normal. Patient reports decreased movement, attributed to reduced space as progresses. Group B Streptococcus (GBS) screening performed today. No reports of vaginal leaking or unusual discharge. Plan - Perform Group B Streptococcus (GBS) screening today - Continue suppressive therapy for recurrent UTIs - Monitor movement and activity - Perform membrane sweep at 39 weeks - Follow up appointment in 2 weeks 1. Progress Reviewed gestational age, growth, and heart rate. Planned frequent visits (every 2 weeks until 36 weeks, then weekly). 2. Instructed patient to monitor movements and report decreases immediately. 3. Testing Counseled on routine third-trimester labs per guidelines. Discussed potential need for ultrasound or monitoring based on risk factors. 4. Preeclampsia Precaution Educated on preeclampsia signs: severe headache, vision changes, right upper quadrant pain, sudden swelling. Advised urgent reporting of symptoms and discussed blood pressure monitoring if high risk. 5. Labor Precautions Reviewed labor signs: regular contractions, pelvic pressure, back pain, bleeding, or fluid leakage. Instructed to seek immediate care for these symptoms. 6. Lifestyle and Delivery Preparation Reinforced vitamins, nutrition, and safe activity. Discussed plan, pain management, and . Advised on labor preparation (e.g., hospital bag) and expectations. 7. Psychosocial Support Assessed emotional well-being and offered resources for mental health or parenting support.
[2025-07-07 10:48] VITALS: BP 133/77; PULSE 84; RESP 16; TEMP 36.8; O2SAT 98; BMI 26.2
== END 2025-07-07 11:21 | disposition home or self-care (01) ==
LOC: HODSOBC 10:36
PROVIDERS: Supervising Provider Obstetrics & Gynecology; Visit Provider Obstetrics & Gynecology
DX: O09.893 Supervision of other high risk pregnancies, third trimester (principal); O34.93 Maternal care for abnormality of pelvic organ, unspecified, third trimester; O35.BXX0 Maternal care for other (suspected) fetal abnormality and damage, fetal cardiac anomalies, not applicable or unspecified; O36.8130 Decreased fetal movements, third trimester, not applicable or unspecified; O99.891 Other specified diseases and conditions complicating pregnancy; M54.50 Low back pain, unspecified; Z3A.37 37 weeks gestation of pregnancy; Z87.440 Personal history of urinary (tract) infections; Z36.85 Encounter for antenatal screening for Streptococcus B
CPT/HCPCS: 99214; G0463

== ENCOUNTER 2025-07-11 23:20 | Observation (INO) | payer MEDICAID, SELFPAY ==
[2025-07-11 23:34] VITALS: BP 126/75; PULSE 82; RESP 16; RESP 97; TEMP 36.8; BMI 26.6
[2025-07-11 23:43] VITALS: BP 126/75; PULSE 101
[2025-07-11 23:47] VITALS: PULSE 91; O2SAT 100
[2025-07-11 23:52] VITALS: PULSE 94; O2SAT 99
[2025-07-11 23:57] VITALS: PULSE 90; O2SAT 99
[2025-07-12] VITALS (12 sets, daily range): PULSE 77–99; O2SAT 97–100
[2025-07-12 00:11] LABS: ROM Kit Lot # 58104371
[2025-07-12 00:12] LABS: ROM Kit Exp Date# 1/18/28; ROM Swab Mixed By: DC; Swb Mxed in Solvent 1 min? Yes
[2025-07-12 00:21] LABS: Rupture of Fetal Membranes Negative (Negative)
== END 2025-07-12 01:10 | disposition home or self-care (01) ==
PROVIDERS: Admitting Provider Obstetrics & Gynecology; Visit Provider Obstetrics & Gynecology
DX: Z34.83 Encounter for supervision of other normal pregnancy, third trimester (principal); Z3A.38 38 weeks gestation of pregnancy
CPT/HCPCS: 59025; 59899; 84112

== ENCOUNTER 2025-07-20 13:23 | Outpatient (AMB) | payer MEDICAID, SELFPAY ==
[2025-07-20 13:53] VITALS: BP 126/81; PULSE 86; RESP 15; TEMP 36.6; O2SAT 96; BMI 26.6
--- NOTE | 2025-07-20 13:53 | OBCLNT_ITS ---
Vital Signs 07/20/25 13:53 Height 1.63 m Height Method Stated Weight 70.477 kg Weight Measurement Method Standing Scale BMI 26.6 BP 126/81 Blood Pressure Source Automatic Cuff Blood Pressure Location Left Upper Arm Position Sitting Respiration 15 Pulse 86 Pulse Source Monitor Temp 98 F Temp Source Oral Pulse Oximetry (%) 96 Oxygen Delivery Method Room Air Allergies/Home Meds Allergies & Medications Allergies lactose Allergy (Severe, Verified 07/20/25 13:54) Diarrhea Medication Reconciliation vitamins with calcium no.72-iron 27 mg-folic acid 1 mg tablet ( Vitamins Plus Low Iron) 1 tab PO QDAY 90 days #90 tabs 12/14/24 [Rx Confirmed 07/20/25] ferrous sulfate 325 mg (65 mg iron) tablet (Feosol) 325 mg PO QDAY 07/11/25 [History Confirmed 07/20/25] Intake Visit Data Collection New Patient or Established: Established Patient (seen at [facility] within 3 years) Reason for Visit:: CARE Seen by Clinical Staff ONLY (RN/MA): No Ruffler Required: No Do You Feel Safe at Home: Yes Authorities Contacted: N/A PCP or OBGYN visit in last 3 months: Yes Hx Now: Yes Are you currently on any form of Control: No Pain Present Currently: No Pain Scale Used: Ochoa-Sosa/Numerical Pain scale:: 0 Smoking Status Smoking Status: Never smoker Questionnaires Covid-19 Vaccine Questionnaire Has patient been vacinated for Covid-19 Have you been vacinated for Covid-19: No PHQ-9 PHQ-2 Over the last 2 weeks, how often have you been bothered by any of the following problems? 1. Little interest or pleasure in doing things: not at all 2. Feeling down, depressed, or hopeless: not at all Total score: 0 PHQ-9 3. Trouble falling or staying asleep, or sleeping too much: Not at all 4. Feeling tired or having little energy: Not at all 5. Poor appetite or overeating: Not at all 6. Feeling bad about yourself - or that you are a failure or have let yourself or your family down: Not at all 7. Trouble concentrating on things, such as reading the newspaper or watching television: Not at all 8. Moving or speaking so slowly that other people could have noticed? - Or the opposite - being so fidgety or restless that you have been moving around a lot more than usual: not at all 9. Thoughts that you would be better off or of hurting yourself in some way: Not at all Total score: 0 Source: Developed by Drs. Butch Rico, Catie Acevedo, Giancarlo Farrar and colleagues, with an educational mishel from [employer]. 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 Bedside ok. Labs reviewed. [facility] this Thursday for NT. 4w. 02/15/25 -?-?-?-?-?-?-?-?-?-?-?-?- 17w 4d 60.044 kg 119/73 Nga Leiva, at 16 weeks and 6 days gestation, presents for routine care and review of results. She was previously treated for UTI symptoms and currently denies urinary frequency, urgency, cramping, or spotting. Nausea has significantly improved. heart rate is 145 bpm, and she reports no concerns at today?s visit. Urine dipstick remains positive for nitrates. Plan: Prescribe antibiotic for current UTI Initiate nightly antibiotic suppression therapy for 30 days Repeat urine culture after suppression p eriod Continue OTC vitamins Attend scheduled 20-week anatomy scan at [facility] Follow up in 4 weeks for routine care 04/19/25 -?-?-?-?-?-?-?-?-?-?-?-?- 26w 4d 63.673 kg 106/68 absent unknown 26 146 active , 25w6d No CTX/LOF/VB, good FM. FHR 146. MFM/Fet al Echo: small muscular and perimembranous VSD, EFW 14th %ile (823g), hypocoiled cord. Awaiting official MFM report. Plan: Ordered 1- hr GTT. F/u in 4 wks for growth monitoring. Advised high-protein diet (chicken, fish, eggs), increase fruits/vegetables, avoid fried/heavy foods. Continue vitamins. Will call with glucose results if abnormal. 05/17/25 -?-?-?-?-?-?-?-?-?-?-?-?- 30w 4d 65.487 kg 107/69 absent cephalic 30 active No contractions, LOF, VB and reports good FM. Denies CAMPBELL, VC, and epigastric pain. - Nga Leiva is a 30-year-old female , 3 para 1, presenting for routine care at 29 weeks and 6 days gestation. - Patient was counseled about diet and weight management. Return in 2w with labs 05/30/25 -?-?-?-?-?-?-?-?-?-?-?-?- 32w 3d 68.039 kg 125/70 absent unknown 30 145 active 31w5d with positive urine culture, no current symptoms, FHR 145, FM reassuring, reports sacral pressure. Plan: Give Tdap today, encourage walking and use of exercise ball, continue routine care, follow up in 2 weeks. 06/16/25 -?-?-?-?-?-?-?-?-?-?-?-?- 34w 6d 66.848 kg 111/68 absent unknown 35 active - Nga Leiva is a 3 para 1 patient at 34 weeks and 1 day gestation presenting for routine care and 2-week follow-up after treatment for UTI at last appointment. - She completed her UTI treatment and re ports no more UTI symptoms. - She reports the baby is active with no contractions, leaking, or cramping. - She had a recent hospital visit due to heartburn that was causing pressure and felt really bad. - She received antacids at the [facility] which improved her symptoms. - A doctor recommended iron supplement ation, which she is now taking. - She is performing kick counts an d reports the baby moves frequently, even during sleep at night. Plan - Continue iron supplementation as recom mended - Perform kick counts twice daily: sit quietly after meals and count movements for 30 minutes, expecting at least 2-3 proper movements; if fewer movements felt, wait another 30 minutes, and if less than 3 movements in one hour total, come in for evaluation - Follow up in 2 weeks 06/28/25 -?-?-?-?-?-?-?-?-?-?-?-?- 36w 4d 69.059 kg 115/71 absent unknown 36 active Patient reports back contractions for 2 days throughout the whole day that come and go, denies LOF and VB, and reports good FM. Denies CAMPBELL, VC, and epigastric pain. - Follow up in one week for weekly visits - At 39 weeks, check cervix and sweep me mbranes - For back contractions/sciatic pain: wa rm showers, Tylenol, and rest - Return immediately if experiencing vom iting to rule out labor 07/07/25 -?-?-?-?-?-?-?-?-?-?-?-?- 37w 6d 69.513 kg 133/77 absent unknown 38 active - Reports ongoing back pain in the third trimester - Experiencing irregular contractions - Patient does not time the contractio ns - Advised to seek evaluation if contra ctions become regular every 5-7 minutes - Notes decreased movement - Attributes this to reduced space as progresses - Still feels movement when placing campbell nd on abdomen - Denies any leaking or unusual discharge Plan - Perform Group B Streptococcus (GBS) sc reening today - Continue suppressive therapy for recur rent UTIs - Monitor movement and activity - Perform membrane sweep at 39 weeks - Follow up appointment in 2 weeks 07/20/25 -?-?-?-?-?-?-?-?-?-?-?-?- 39w 5d 70.477 kg 126/81 absent unknown 40 active - She has a history of recurrent UTIs on suppressive therapy. - Previously diagnosed VSD and hyp ercoiled cord have resolved. - She is due for cervical check and sweeping of membranes. - Cervical check - Swapping of membranes LIS Calculator Estimated Delivery Date Method Current WG Current Estimate 07/22/25 LMP (Certain) 44w 0d Other Estimates 07/27/25 Ultrasound #1 43w 2d Specific Issue/Plans - [facility] Ultrasound (04/17/2025): - Gestational age: 25 weeks 6 days - Estimated weight: 823 grams (14th percentile) - presentation: Cephalic - Findings: Hypo-coiled umbilical cord, growth restriction - Cardio-echocardiogram (04/17/2025): - 4 chamber view - 2 pulmonary veins visualized - Bilateral a-v concordance - Left atrium closest to the spine - Normal situs - Septal leaflet insertion of tricuspid slightly more apical - Small muscular VSD visualized - Small perimembranous VSD visualized - Interatrial septum within normal limits Notes Visit Date: 06/28/25 Last Updated by: Arthur Kohler MD - Ultrasound (June 21, 2025): - growth at 55th percentile - Estimated weight 6 pounds at 34 weeks gestation - Previously noted VSD and hypercoiled cord have resolved - heart rate: 158-159 bpm (normal) Office Procedures OBC Clinic LOC & Office Proc's Nursing/Assessment Patient Status: Established Patient OB Clinic Nursing Assessment: Medication Reconciliation, Update PMH in EMR and Vital Signs OB Clinic Coordination of Care: Complex Care and Chronic Disease 1-5, Consent,records obtained, informed consent, Education Simp Pt/Fam, 1 Ins Authorization, Lab and Imaging orders, Results/Orders obtained and Staff clarify orders Special Needs: Heart tones Miscellaneous Interventions: Pelvic no cultures Established Patient Charge Established Patient Point Assignment: 160 Established Patient Point Charge: EP Level 5 (160-above) Assessment & Plan Diagnosis / Problem List (1) Maternal care for other abnormalities of pelvic organs, third trimester: Status: Acute Plan Problem List - , third trimester - Recurrent urinary tract infections - ventricular septal defect - Hypercoiled umbilical cord Plan - Cervical check - Swapping of membranes 1. Progress Reviewed gestational age, growth, and heart rate. Planned frequent visits (every 2 weeks until 36 weeks, then weekly). 2. Instructed patient to monitor movements and report decreases immediately. 3. Testing Counseled on routine third-trimester labs per guidelines. Discussed potential need for ultrasound or monitoring based on risk factors. 4. Preeclampsia Precaution Educated on preeclampsia signs: severe headache, vision changes, right upper quadrant pain, sudden swelling. Advised urgent reporting of symptoms and discussed blood pressure monitoring if high risk. 5. Labor Precautions Reviewed labor signs: regular contractions, pelvic pressure, back pain, bleeding, or fluid leakage. Instructed to seek immediate care for these symptoms. 6. Lifestyle and Delivery Preparation Reinforced vitamins, nutrition, and safe activity. Discussed plan, pain management, and . Advised on labor preparation (e.g., hospital bag) and expectations. 7. Psychosocial Support Assessed emotional well-being and offered resources for mental health or parenting support.
== END 2025-07-20 14:11 | disposition home or self-care (01) ==
LOC: HODSOBC 13:23
PROVIDERS: Supervising Provider Obstetrics & Gynecology; Visit Provider Obstetrics & Gynecology
DX: O09.893 Supervision of other high risk pregnancies, third trimester (principal); O34.83 Maternal care for other abnormalities of pelvic organs, third trimester; Z3A.39 39 weeks gestation of pregnancy
CPT/HCPCS: 99215; G0463

== ENCOUNTER 2025-08-25 10:37 | Outpatient (AMB) | payer MEDICAID, SELFPAY ==
[2025-08-25 10:47] VITALS: BP 113/66; PULSE 67; RESP 18; TEMP 36.2; O2SAT 98; BMI 24.3
--- NOTE | 2025-08-25 10:47 | AMBOBPPN_ITS ---
Vital Signs 08/25/25 10:47 Height 1.63 m Height Method Stated Weight 64.524 kg Weight Measurement Method Standing Scale BMI 24.3 BP 113/66 Blood Pressure Source Automatic Cuff Blood Pressure Location Left Upper Arm Position Sitting Respiration 18 Pulse 67 Pulse Source Monitor Temp 97.2 F Temp Source Oral Pulse Oximetry (%) 98 Oxygen Delivery Method Room Air Allergies/Home Meds Allergies & Medications Allergies lactose Allergy (Severe, Verified 08/25/25 10:48) Diarrhea Medication Reconciliation vitamins with calcium no.72-iron 27 mg-folic acid 1 mg tablet ( Vitamins Plus Low Iron) 1 tab PO QDAY 90 days #90 tabs 12/14/24 [Rx Confirmed 08/25/25] ferrous sulfate 325 mg (65 mg iron) tablet (Feosol) 325 mg PO QDAY 07/11/25 [History Confirmed 08/25/25] Intake Visit Data Collection New Patient or Established: Established Patient (seen at [facility] within 3 years) Reason for Visit:: PP Seen by Clinical Staff ONLY (RN/MA): Yes 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: No Do You Feel Safe at Home: Yes Authorities Contacted: N/A PCP or OBGYN visit in last 3 months: Yes Date of Last PCP or OBGYN visit: 07/20/25 Hx Now: No Are you currently on any form of Control: No Pain Present Currently: No Pain Scale Used: Ochoa-Sosa/Numerical Pain scale:: 0 Smoking Status Smoking Status: Never smoker Immunizations Flu Vaccine in the Last 12 Months: No Flu Vaccine Exclusion Criteria: No Exclusion Criteria 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 SPECIALIST: Past Medical History Past Medical History: No Hx Hypothyroidism, No Hx Breast Cancer, No Hx Hypertension, No Hx Anemia, No Hx Renal Disease, No Hx Diabetes Mellitus Type 1 and No Hx Diabetes Mellitus Type 2 Questionnaires Covid-19 Vaccine Questionnaire Has patient been vacinated for Covid-19 Have you been vacinated for Covid-19: Yes Social History Living Situation History Lives With: Family Housing: House Tobacco History Smoking Status: Never smoker Second Hand Smoke Exposure: No Alcohol History Alcohol Intake: Never Substance Use History Substance Use: NONE Domestic Abuse History Do You Feel Safe at Home: Yes Care OB Visit Log OB Flowsheet Initial Weight: Not Recorded Date -?-?-?-?-?-?-?-?-?-?-?-?- EGA Weight BP Alb Glu CTX Pres Fundal ht FHR Mov Dilation Station Effacement Hx Notes Visit Note 12/14/24 -?-?-?--?-?-?-?-?-?-?-?-?- 8w 4d 59.421 kg 111/68 01/16/25 -?-?-?-?-?-?-?-?-?-?-?-?- 13w 2d 58.173 kg 108/72 151 RX for UTI. Bedside ok. Labs reviewed. MFM this Thursday for NT. 4w. 02/15/25 -?-?-?-?-?-?-?-?-?-?-?-?- 17w 4d 60.044 kg 119/73 Nga Leiva, at 16 weeks and 6 days gestation, presents for routine care and review of results. She was previously treated for UTI symptoms and currently denies urinary frequency, urgency, cramping, or spotting. Nausea has significantly improved. heart rate is 145 bpm, and she reports no concerns at today?s visit. Urine dipstick remains positive for nitrates. Plan: Prescribe antibiotic for current UTI Initiate nightly antibiotic suppression therapy for 30 days Repeat urine culture after suppression p eriod Continue OTC vitamins Attend scheduled 20-week anatomy scan at [facility]' Follow up in 4 weeks for routine care 04/19/25 -?-?-?-?-?-?-?-?-?-?-?-?- 26w 4d 63.673 kg 106/68 absent unknown 26 146 active , 25w6d No CTX/LOF/VB, good FM. FHR 146. MFM/Fet al Echo: small muscular and perimembranous VSD, EFW 14th %ile (823g), hypocoiled cord. Awaiting official [facility] report. Plan: Ordered 1- hr GTT. F/u in 4 wks for growth monitoring. Advised high-protein diet (chicken, fish, eggs), increase fruits/vegetables, avoid fried/heavy foods. Continue vitamins. Will call with glucose results if abnormal. 05/17/25 -?-?-?-?-?-?-?-?-?-?-?-?- 30w 4d 65.487 kg 107/69 absent cephalic 30 active No contractions, LOF, VB and reports good FM. Denies CAMPBELL, VC, and epigastric pain. - Nga Leiva is a 30-year-old female , 3 para 1, presenting for routine care at 29 weeks and 6 days gestation. - Patient was counseled about diet and weight management. Return in 2w with labs 05/30/25 -?-?-?-?-?-?-?-?-?-?-?-?- 32w 3d 68.039 kg 125/70 absent unknown 30 145 active 31w5d with positive urine culture, no current symptoms, FHR 145, FM reassuring, reports sacral pressure. Plan: Give Tdap today, encourage walking and use of exercise ball, continue routine care, follow up in 2 weeks. 06/16/25 -?-?-?-?-?-?-?-?-?-?-?-?- 34w 6d 66.848 kg 111/68 absent unknown 35 active - Nga Leiva is a 3 para 1 patient at 34 weeks and 1 day gestation presenting for routine care and 2-week follow-up after treatment for UTI at last appointment. - She completed her UTI treatment and re ports no more UTI symptoms. - She reports the baby is active with no contractions, leaking, or cramping. - She had a recent hospital visit due to heartburn that was causing pressure and felt really bad. - She received antacids at the [facility] which improved her symptoms. - A doctor recommended iron supplement ation, which she is now taking. - She is performing kick counts an d reports the baby moves frequently, even during sleep at night. Plan - Continue iron supplementation as recom mended - Perform kick counts twice daily: sit quietly after meals and count movements for 30 minutes, expecting at least 2-3 proper movements; if fewer movements felt, wait another 30 minutes, and if less than 3 movements in one hour total, come in for evaluation - Follow up in 2 weeks 06/28/25 -?-?-?-?-?-?-?-?-?-?-?-?- 36w 4d 69.059 kg 115/71 absent unknown 36 active Patient reports back contractions for 2 days throughout the whole day that come and go, denies LOF and VB, and reports good FM. Denies CAMPBELL, VC, and epigastric pain. - Follow up in one week for weekly visits - At 39 weeks, check cervix and sweep me mbranes - For back contractions/sciatic pain: wa rm showers, Tylenol, and rest - Return immediately if experiencing vom iting to rule out labor 07/07/25 -?-?-?-?-?-?-?-?-?-?-?-?- 37w 6d 69.513 kg 133/77 absent unknown 38 active - Reports ongoing back pain in the third trimester - Experiencing irregular contractions - Patient does not time the contractio ns - Advised to seek evaluation if contra ctions become regular every 5-7 minutes - Notes decreased movement - Attributes this to reduced space as progresses - Still feels movement when placing campbell nd on abdomen - Denies any leaking or unusual discharge Plan - Perform Group B Streptococcus (GBS) sc reening today - Continue suppressive therapy for recur rent UTIs - Monitor movement and activity - Perform membrane sweep at 39 weeks - Follow up appointment in 2 weeks 07/20/25 -?-?-?-?-?-?-?-?--?-?-?-?- 39w 5d 70.477 kg 126/81 absent unknown 40 active - She has a history of recurrent UTIs on suppressive therapy. - Previously diagnosed VSD and hyp ercoiled cord have resolved. - She is due for cervical check and sweeping of membranes. - Cervical check - Swapping of membranes 08/25/25 -?-?-?-?-?-?-?-?-?-?-?-?- 44w 6d 64.524 kg 113/66 LIS Calculator Estimated Delivery Date Method Current WG Current Estimate 07/22/25 LMP (Certain) 44w 6d Other Estimates 07/27/25 Ultrasound #1 44w 1d Specific Issue/Plans - [facility] Ultrasound (04/17/2025): - Gestational age: 25 weeks 6 days - Estimated weight: 823 grams (14th percentile) - presentation: Cephalic - Findings: Hypo-coiled umbilical cord, growth restriction - Cardio-echocardiogram (04/17/2025): - 4 chamber view - 2 pulmonary veins visualized - Bilateral a-v concordance - Left atrium closest to the spine - Normal situs - Septal leaflet insertion of tricuspid slightly more apical - Small muscular VSD visualized - Small perimembranous VSD visualized - Interatrial septum within normal limits Notes Visit Date: 06/28/25 Last Updated by: Arthur Kohler MD - Ultrasound (June 21, 2025): - growth at 55th percentile - Estimated weight 6 pounds at 34 weeks gestation - Previously noted VSD and hypercoiled cord have resolved - heart rate: 158-159 bpm (normal) HPI Interval History: on 07/28/2025 at [facility], spontaneous labor, no problems in labor and delivery and exclusively breast feeding would like Flu vaccine and she is counseled on R/B and options of Flu vaccine Was or delivery considered high risk: No Delivery type: vaginal Was labor induced: no Gestational age at delivery (weeks): 40 Delivery date: 07/28/25 Delivering provider: delivered in [place] Delivery complications: No Is patient : Yes Is patient sexually active: No Contraception planned: declined Review of Systems Review of Systems ROS limited to current 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 care routine. She is doing well, VSS alert and oriented/normal insight and judgment/denies depression or anxiety No chest pain No shortness of breath No fever Back pain manageable/denies Moving all extremities No calf pain Ambulating pain managed by Tylenol and Motrin, none now Lochia was average and still has mild spotting now Voiding spontaneously Other medical issues none Other concerns would like flu Vaccine /R/B and options given Patient had a Pap smear today Doing breast-feeding exclusively Counseled on breast-feeding/ also counselled on contraception Counseled on care and follow-up for women's Health External exam: Present normal external exam Speculum exam: Present normal speculum exam and other (mild spotting noted ) Bimanual exam: Present normal bimanual exam Office Procedures [facility] Clinic LOC & Office Proc's Nursing/Assessment Patient Status: Established Patient OB Clinic Nursing Assessment: Medication Reconciliation, Update PMH in EMR and Vital Signs OB Clinic Coordination of Care: Consent,records obtained, informed consent, Education Simp Pt/Fam, Lab and Imaging orders, Results/Orders obtained and Staff clarify orders Established Patient Charge Established Patient Point Assignment: 80 Established Patient Point Charge: EP Level 3 (80-115) Immunizations flu vac ts (6mos up)-PF 45 mcg(15mcg x3)/0.5 mL IM syringe Performing Provider: Alana Martin MD Performing Location: [facility] Administered by: Magdalene Trujillo MA on 08/25/25 15:29 Dose Route Admin Location Dispensed Lot Number Expiration Date Pack age NDC ND Oil Winterizer 0.5 mL IM Left Deltoid 0.5 mL [id number] 04/03/26 [id number] [place] VIS Given Date VIS Provided VIS Publication Date 08/25/25 Single Vaccine 24 Eligibility Eligibility Date Funding Source Public Non-[facility] Assessment & Plan Diagnosis / Problem List (1) Routine Follow-Up: Care Reviewed delivery summary and any complications: Yes Screened for depression: No Contraception planned: declined Counseling on safe resumption of sexual activity: Yes Counseling on gradual excercise: Yes Discussed and concerns (describe), provided support: Yes Counseled on good nutrition, hydration, and self care: Yes Reviewed vaccine status: Yes Vaccines due: vac. provided (Flu today) Chronic & current problems reconciled on problem list: Yes Additional follow up plans: annual follow up Follow up: routine/prn (FP) Tobacco Smoking Status: Never smoker ([employer]) 2hr glucose: No Return of menses: Yes Is last menstrual period known: No Resuming intercourse: Yes Date of delivery: 07/28/25 Route of delivery: Order: [place] Delivery outcome: liveborn Other delivery details: delivered in [place] Interim details: no feeding problems Interim complaints: none [place] concerns: none Interim concern details: none
== END 2025-08-25 11:36 | disposition home or self-care (01) ==
LOC: HODSOBC 10:37
PROVIDERS: Supervising Provider Obstetrics & Gynecology; Visit Provider Obstetrics & Gynecology
DX: Z39.2 Encounter for routine postpartum follow-up (principal); Z39.1 Encounter for care and examination of lactating mother; Z23 Encounter for immunization; Z91.0110 Allergy to milk products, unspecified
CPT/HCPCS: 90471; 90686; 99213; G0463; J9060